=== PATIENT | male | born 1965 | race Caucasian/White ===

== ENCOUNTER 2018-10-06 15:34 | Inpatient (IN) ==
--- OUTSIDE RECORDS SUMMARY | 2018-10-06 15:37 | External Medical Summary | Continuity of Care Document ---
:1965 Author Name Dmitriy Salazar, Provider Address Unavailable Unavailable , Care Team Providers Name Role Phone NonMNPG Marie, Provider Unavailable [email or web address] Unavailable Unavailable Problems Active medical history not documented Allergies and Adverse Reactions Allergy history not documented Medications Medications not documented Procedures Procedures not documented Immunizations Immunizations not documented Plan of Treatment Planned Observations Planned Goals not documented Results No Known Results Results not documented
[2018-10-06] MEDS ORDERED: ACETAMINOPHEN 1,000 MG/100 ML VIAL IV STA (15:52)
[2018-10-06] MEDS ORDERED: SODIUM CHLORIDE 0.9% 1000ML 1,000 ML IV SCH (16:00)
--- NOTE | 2018-10-06 16:06 | XRay Report ---
XR chest 1V portable HISTORY: 53 years-old Male vertigo acute syncope COMPARISON: None available TECHNIQUE: Portable AP view of the chest FINDINGS: Cardiac mediastinal and hilar silhouettes are within normal limits. No pneumothorax, pleural effusion , focal airspace consolidation or overt pulmonary edema. Degenerative changes of the shoulders and sp ine. IMPRESSION: No acute process. The above report was generated using voice recognition software. It may contain grammatical, syntax o r spelling errors. Electronically signed by: Gerardo Perales M.D. 10/06/2018 4:04 PM
--- NOTE | 2018-10-06 16:07 | Emergency Department Note ---
Entered by Mirta Martinez acting as a scribe for Shantanu Tinoco DO History of Present Illness General Chief complaint: Fall Stated complaint: HEADACHE, FALL, HEAD INJURY Source: patient Mode of arrival: ambulatory Limitations: no limitations History of Present Illness Provider complaint: Fall Onset (ago): minute(s) Location: head Radiation: neck Associated symptoms: + denies other symptoms (-numbness/tingling in extremities), + nausea/vomiting (vomiting no nausea ) and + other (+dizziness, +blurry vision, +heart palpitations, +neck pain) The patient is a 53 year old male who presents to the Emergency Room with comp laints of a fall that occurred just prior to arrival. The patient states that he was sitting on his couch looking at albums on his computer when he suddenly got a headache, felt something in the back of his neck, and then had dizziness. The patient states that he walked outside to his porch to sit on his swing when he face-planted off of the porch. The patient states that he has neck pain, dizzine ss, heart palpitations, blurry vision, and vomiting. The patient denies any numbness/tingling in his extremities or loss of consciousness. The patient denies a history of stroke of hypertension. The patient denies smoking tobacco but states that he does drink occasionally. 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 and A total of 10 systems reviewed and were otherwise negative Physical Exam Vital Signs Vital Signs - 24 hr 10/06/18 15:40 10/06/18 15:43 10/06/18 15:47 Temperature 36.7 C Temperature Source Oral Sepsis Recent Fever Within 48 Hours No Sepsis New/Unexplained Change in Mental Status No Sepsis Action Taken by Nursing No Action Required Pulse Rate 75 72 85 Pulse Rate from SpO2 Sensor 75 74 Respiratory Rate 23 20 20 Respiratory Effort / Characteristics Non-Labored Spontaneous Respiratory Depth Normal Respiratory Pattern Regular Blood Pressure 177/122 H 177/122 H Blood Pressure Mean 140 140 Pulse Oximetry 96 95 96 Oxygen Delivery Method Room Air 10/06/18 16:00 10/06/18 16:30 10/06/18 17:02 Temperature Temperature Source Sepsis Recent Fever Within 48 Hours Sepsis New/Unexplained Change in Mental Status Sepsis Action Taken by Nursing Pulse Rate 86 82 78 Pulse Rate from SpO2 Sensor 86 78 Respiratory Rate 16 17 15 Respiratory Effort / Characteristics Respiratory Depth Respiratory Pattern Blood Pressure 175/107 H 166/99 H 163/99 H Blood Pressure Mean 129 121 120 Pulse Oximetry 96 97 Oxygen Delivery Method 10/06/18 17:03 10/06/18 17:30 10/06/18 17:31 Temperature Temperature Source Sepsis Recent Fever Within 48 Hours Sepsis New/Unexplained Change in Mental Status Sepsis Action Taken by Nursing Pulse Rate 82 74 70 Pulse Rate from SpO2 Sensor 81 75 71 Respiratory Rate 15 22 19 Respiratory Effort / Characteristics Respiratory Depth Respiratory Pattern Blood Pressure 172/89 H Blood Pressure Mean 116 Pulse Oximetry 97 97 97 Oxygen Delivery Method 10/06/18 17:32 10/06/18 18:00 10/06/18 18:30 Temperature Temperature Source Sepsis Recent Fever Within 48 Hours Sepsis New/Unexplained Change in Mental Status Sepsis Action Taken by Nursing Pulse Rate 73 80 98 H Pulse Rate from SpO2 Sensor 72 77 101 H Respiratory Rate 25 H 19 19 Respiratory Effort / Characteristics Respiratory Depth Respiratory Pattern Blood Pressure 172/118 H 190/121 H Blood Pressure Mean 136 144 Pulse Oximetry 96 96 96 Oxygen Delivery Method 10/06/18 18:45 10/06/18 19:00 10/06/18 19:15 Temperature Temperature Source Sepsis Recent Fever Within 48 Hours Sepsis New/Unexplained Change in Mental Status Sepsis Action Taken by Nursing Pulse Rate 67 70 75 Pulse Rate from SpO2 Sensor 68 71 78 Respiratory Rate 21 17 18 Respiratory Effort / Characteristics Respiratory Depth Respiratory Pattern Blood Pressure 169/99 H 173/105 H 161/109 H Blood Pressure Mean 122 127 126 Pulse Oximetry 96 95 96 Oxygen Delivery Method 10/06/18 19:30 10/06/18 19:45 10/06/18 20:00 Temperature Temperature Source Sepsis Recent Fever Within 48 Hours Sepsis New/Unexplained Change in Mental Status Sepsis Action Taken by Nursing Pulse Rate 73 75 70 Pulse Rate from SpO2 Sensor 71 73 Respiratory Rate 13 16 17 Respiratory Effort / Characteristics Respiratory Depth Respiratory Pattern Blood Pressure 170/105 H 174/102 H 175/110 H Blood Pressure Mean 126 126 131 Pulse Oximetry 96 96 Oxygen Delivery Method 10/06/18 20:15 10/06/18 20:30 10/06/18 20:45 Temperature Temperature Source Sepsis Recent Fever Within 48 Hours Sepsis New/Unexplained Change in Mental Status Sepsis Action Taken by Nursing Pulse Rate 90 86 77 Pulse Rate from SpO2 Sensor 85 77 Respiratory Rate 19 16 22 Respiratory Effort / Characteristics Respiratory Depth Respiratory Pattern Blood Pressure 169/102 H 159/108 H 165/110 H Blood Pressure Mean 124 125 128 Pulse Oximetry 97 96 96 Oxygen Delivery Method 10/06/18 21:00 10/06/18 21:15 Temperature Temperature Source Sepsis Recent Fever Within 48 Hours Sepsis New/Unexplained Change in Mental Status Sepsis Action Taken by Nursing Pulse Rate 88 74 Pulse Rate from SpO2 Sensor 76 Respiratory Rate 17 19 Respiratory Effort / Characteristics Respiratory Depth Respiratory Pattern Blood Pressure 163/111 H 170/108 H Blood Pressure Mean 128 128 Pulse Oximetry 96 Oxygen Delivery Method GENERAL: Patient is awake, alert, and in no acute distress. Patient is resting comfortably and showing no signs of anxiety. EYES: The conjunctivae are clear. The pupils are round and reactive. No nystagmus was noted. EARS, NOSE, MOUTH AND THROAT: The nose is without any evidence of any deformity. Mucous membranes are moist.Tongue is midline. There is a contusion and abrasion over the right side of the forehead. NECK: The neck is nontender and supple. RESPIRATORY: Normal respiratory effort is noted. There is no evidence of wheezing rhonchi or rales to auscultation. CARDIOVASCULAR: Regular rate and rhythm noted. There no murmurs rubs or gallops normal S1 normal S2 GASTROINTESTINAL: The abdomen is soft. Bowel sounds are present in all quadrants. Abdomen is nontender. MUSCULOSKELETAL/EXTREMITIES: There is no evidence of gross deformity. Full range of motion is noted in the hips and shoulders. SKIN: There is no obvious evidence of any rash. There are no petechiae, pallor or cyanosis noted. NEUROLOGIC: Patient is awake alert and oriented x3. Facial droop was not appreciated. Strength was symmetric in both lower extremities. Patient's gait was stable. Course 1545: The patient was evaluated in room C6, and a complete history and physical examination were performed. 1710: I checked on the patient and updated him on his results. 1814: [facility]. Neurology accepts the patient's admission. Consultations Consultation #1: [facility]ana[facility] Time: 18:15 Administered Medications Acetaminophen (Tylenol) 650 mg PO Q6H PRN PRN Reason: Fever Stop: 11/05/18 22:16 Last Admin: 10/07/18 03:34 Dose: 650 mg Documented by: [id number] Aspirin (Ecotrin Ectab) 81 mg PO QAM [facility] Stop: 11/06/18 08:59 Last Admin: 10/07/18 09:30 Dose: 81 mg Documented by: [id number] Lactated Ringer's (Lr) 1,000 mls @ 40 mls/hr IV .Q24H ONE Stop: 10/07/18 22:16 Last Admin: 10/06/18 23:35 Dose: 40 mls/hr Documented by: [id number] Lisinopril (Zestril) 2.5 mg PO QAM [facility] Stop: 11/06/18 03:44 Last Admin: 10/07/18 03:55 Dose: 2.5 mg Documented by: [id number] Tramadol HCl (Ultram) 25 mg PO Q4H PRN PRN Reason: Pain Stop: 11/05/18 22:16 Last Admin: 10/06/18 23:39 Dose: 25 mg Documented by: [id number] Discontinued Medications Aspirin (Ecotrin) 81 mg PO NOW STA Stop: 10/06/18 21:20 Last Admin: 10/06/18 21:42 Dose: Not Given Documented by: [id number] Aspirin (Aspirin Chew) Confirm Administered Dose 81 mg .ROUTE .STK-MED ONE Stop: 10/06/18 21:31 Last Admin: 10/06/18 21:42 Dose: 81 mg Documented by: [id number] Heparin Sodium/Dextrose () 1 ea IV ONE ONE; Protocol Stop: 10/06/18 18:11 Last Admin: 10/06/18 19:01 Dose: Not Given Documented by: [id number] Heparin Sodium/Dextrose (Heparin Sodium/Dextrose) Confirm Administered Dose 25,000 units IV .STK-MED ONE Stop: 10/06/18 18:30 Last Admin: 10/06/18 18:37 Dose: 32 ml Documented by: [id number] Cosigned by: [id number] Heparin Sodium/Dextrose () 1 ea IV NOW STA; Protocol Stop: 10/06/18 20:47 Last Admin: 10/06/18 21:03 Dose: 1 ea Documented by: [id number] Acetaminophen (Ofirmev) 1,000 mg in 100 mls @ 400 mls/hr IV NOW STA Stop: 10/06/18 16:06 Last Infusion: 10/06/18 16:39 Dose: 0 mls/hr Documented by: [id number] Admin: 10/06/18 16:23 Dose: 400 mls/hr Documented by: [id number] Sodium Chloride (Nss 1000ml) 1,000 mls @ 50 mls/hr IV .Q20H [facility] Stop: 11/05/18 15:59 Last Infusion: 10/06/18 21:13 Dose: 0 mls/hr Documented by: [id number] Admin: 10/06/18 16:23 Dose: 50 mls/hr Documented by: [id number] Heparin Sodium/Dextrose (Heparin Sodium/Dextrose) 25,000 units in 500 mls @ 20 mls/hr IV .Q24H ABI; Protocol Stop: 11/05/18 20:59 Last Admin: 10/06/18 21:13 Dose: Not Given Documented by: [id number] Ioversol (Optiray 320 125ml) 120 ml IV ONCE PRN PRN Reason: Interaction Checking Stop: 10/10/18 16:50 Last Admin: 10/06/18 16:52 Dose: 120 ml Documented by: [id number] Labetalol HCl (Normodyne) 10 mg IV NOW STA Stop: 10/06/18 18:18 Last Admin: 10/06/18 18:34 Dose: 10 mg Documented by: [id number] Cosigned by: [id number] Morphine Sulfate (Morphine Sulfate) 4 mg IV NOW STA Stop: 10/06/18 20:58 Last Admin: 10/06/18 21:01 Dose: 4 mg Documented by: [id number] Morphine Sulfate (Morphine Sulfate) Confirm Administered Dose 4 mg .ROUTE .STK- MED ONE Stop: 10/06/18 21:01 Last Admin: 10/06/18 21:02 Dose: Not Given Documented by: [id number] Ondansetron HCl (Zofran) 4 mg IV NOW STA Stop: 10/06/18 20:58 Last Admin: 10/06/18 21:01 Dose: 4 mg Documented by: [id number] Ondansetron HCl (Zofran) Confirm Administered Dose 4 mg .ROUTE .STK-MED ONE Stop: 10/06/18 21:01 Last Admin: 10/06/18 21:02 Dose: Not Given Documented by: [id number] Potassium Chloride (Klor-Con M20) 40 meq PO NOW STA Stop: 10/06/18 19:51 Last Admin: 10/06/18 20:16 Dose: 40 meq Documented by: [id number] Medical Decision Making Differential Diagnosis Differential Diagnosis includes but is not limited to dehydration, stroke, anemia, hypoglycemia, hyponatremia, hypernatremia, urinary tract infection, pneumonia, bronchitis, sepsis, gastroenteritis, additional abdominal pathology, metabolic abnormalities and infections. Medical Records Attestation: I reviewed the patient's medical records. Home Medications Current Medication List: was personally reviewed by me Laboratory Data Attestation: I reviewed the patient's lab results. Result diagrams: 10/07/18 06:22 10/07/18 06:22 Lab Results 10/06/18 10/06/18 10/06/18 Range/Units 15:52 15:52 15:52 WBC 8.18 (4.8-10.8) K/uL RBC 5.03 (4.7-6.1) M/uL Hgb 16.7 (14.0-18.0) g/dL Hct 46.3 (42-52) % MCV 92.0 (80-100) fL MCH 33.2 (25-34) pg MCHC 36.1 H (32-36) g/dL RDW Std Deviation 44.3 (36.4-46.3) fL RDW Coeff of Maria Luisa 13.2 (11.5-14.5) % Plt Count 192 (130-400) K/uL MPV 10.2 (7.4-10.4) fL Immature Gran % (Auto) 0.1 % Neut % (Auto) 83.0 % Lymph % (Auto) 11.4 % [place] % (Auto) 3.8 % Eos % (Auto) 1.5 % Baso % (Auto) 0.2 % Immature Gran # (Auto) 0.01 (0.00-0.02) K/uL Neut # (Auto) 6.79 H (1.4-6.5) K/uL Lymph # (Auto) 0.93 L (1.2-3.4) K/uL [place] # (Auto) 0.31 (0.11-0.59) K/uL Eos # (Auto) 0.12 (0-0.5) K/uL Baso # (Auto) 0.02 (0-0.2) K/uL PT 10.3 (9.0-12.0) Seconds INR 1.0 (0.9-1.1) APTT 23.2 (21.0-31.0) Seconds PTT Ratio 0.9 Sodium 140 (136-145) mmol/L Potassium 3.4 L (3.5-5.1) mmol/L Chloride 107 (98-107) mmol/L Carbon Dioxide 27 (21-32) mmol/L Anion Gap 6.0 (3-11) BUN 9 (7-18) mg/dl Creatinine 0.97 (0.6-1.4) mg/dl Est Cr Clr Drug Dosing 108.8 ml/min Est GFR ( Amer) 102.2 Est GFR (Non-Af Amer) 88.1 BUN/Creatinine Ratio 9.5 L (10-20) Glucose 120 H (70-99) mg/dl Estimat Average Glucose mg/dl Hemoglobin A1c (4.5-5.6) % Calcium 8.4 L (8.5-10.1) mg/dl Magnesium 2.2 (1.8-2.4) mg/dl Total Bilirubin 1.1 H (0.2-1) mg/dl AST 15 (15-37) U/L ALT 31 (12-78) U/L Alkaline Phosphatase 49 (45-117) U/L Troponin I < 0.015 (0-0.045) ng/ml Total Protein 7.7 (6.4-8.2) gm/dl Albumin 3.9 (3.4-5.0) gm/dl Globulin 3.8 (2.5-4.0) gm/dl Albumin/Globulin Ratio 1.0 (0.9-2) TSH (0.300-4.500) uIu/ml Free T4 (0.8-1.6) ng/dl 10/06/18 10/06/18 Range/Units 15:52 15:52 WBC (4.8-10.8) K/uL RBC (4.7-6.1) M/uL Hgb (14.0-18.0) g/dL Hct (42-52) % MCV (80-100) fL MCH (25-34) pg MCHC (32-36) g/dL RDW Std Deviation (36.4-46.3) fL RDW Coeff of Maria Luisa (11.5-14.5) % Plt Count (130-400) K/uL MPV (7.4-10.4) fL Immature Gran % (Auto) % Neut % (Auto) % Lymph % (Auto) % [place] % (Auto) % Eos % (Auto) % Baso % (Auto) % Immature Gran # (Auto) (0.00-0.02) K/uL Neut # (Auto) (1.4-6.5) K/uL Lymph # (Auto) (1.2-3.4) K/uL [place] # (Auto) (0.11-0.59) K/uL Eos # (Auto) (0-0.5) K/uL Baso # (Auto) (0-0.2) K/uL PT (9.0-12.0) Seconds INR (0.9-1.1) APTT (21.0-31.0) Seconds PTT Ratio Sodium (136-145) mmol/L Potassium (3.5-5.1) mmol/L Chloride (98-107) mmol/L Carbon Dioxide (21-32) mmol/L Anion Gap (3-11) BUN (7-18) mg/dl Creatinine (0.6-1.4) mg/dl Est Cr Clr Drug Dosing ml/min Est GFR ( Amer) Est GFR (Non-Af Amer) BUN/Creatinine Ratio (10-20) Glucose (70-99) mg/dl Estimat Average Glucose 103 mg/dl Hemoglobin A1c 5.2 (4.5-5.6) % Calcium (8.5-10.1) mg/dl Magnesium (1.8-2.4) mg/dl Total Bilirubin (0.2-1) mg/dl AST (15-37) U/L ALT (12-78) U/L Alkaline Phosphatase (45-117) U/L Troponin I (0-0.045) ng/ml Total Protein (6.4-8.2) gm/dl Albumin (3.4-5.0) gm/dl Globulin (2.5-4.0) gm/dl Albumin/Globulin Ratio (0.9-2) TSH 5.600 H (0.300-4.500) uIu/ml Free T4 1.01 (0.8-1.6) ng/dl Imaging Data Radiologist's Impression: Radiology results as stated below per my review and the radiologist's interpretation: XR chest 1V portable HISTORY: 53 years-old Male vertigo acute syncope COMPARISON: None available TECHNIQUE: Portable AP view of the chest FINDINGS: Cardiac mediastinal and hilar silhouettes are within normal limits. No pneumothorax, pleural effusion, focal airspace consolidation or overt pulmonary edema. Degenerative changes of the shoulders and spine. IMPRESSION: No acute process. The above report was generated using voice recognition software. It may contain grammatical, syntax or spelling errors. Electronically signed by: Gerardo Perales M.D. 10/06/2018 4:04 PM ECG Data Attestation: I personally reviewed and interpreted this ECG as follows: Indication: weakness Rate (beats per minute): 66 Rhythm: normal sinus Findings: + PAC; no acute ischemic change Comparison ECG Date: no prior available Blood Pressure Blood Pressure Findings: Elevated blood pressure Blood Pressure Disposition: elevated BP felt to be situational MDM Narrative The patient is a 53-year-old male who presented to the emergency department by ambulance. The patient states that while he was working at home he started to notice an acute onset of vertigo. This was preceded by neck pain as well as headache. The patient states that he was having difficulty ambulating and felt very ataxic. Patient went outside and sat on a porch swing which exacerbated the vertigo and he fell forward striking his forehead. The patient had no focal neurologic deficits. He was able to ambulate but did have significant vertigo symptoms. For this reason I felt his condition could be consistent with a vascular abnormality and given his neck pain we are concerned about a dissection. I discussed the patient's laboratory and radiographic studies with him. He was found to have signs of vertebral dissection on angiography. For this reason he was started on heparin. CT the head did not reveal any acute bleeding. I discussed the patient's laboratory and radiographic studies with him and his family members. I also discussed his case with the on-call [facility] hospitalist group. He was treated with IV medications for blood pressure as well as IV heparin. On subsequent reevaluation he was feeling somewhat improved but required IV pain medication. Impression & Plan Vertigo, Contusion of forehead, Vertebral artery dissection Critical Care Time Critical Care Time: Yes Total Critical Care Time: 60 I have personally spent 60 minutes of critical care time in the direct ma nagement of this patient. This includes bedside care, interpretation of diagnostic studies, and testing, discussion with consultants, patient, and family members, and other required patient management activities. This 60 minutes is in excess of all separately billable procedures. Discharge Plan Visit Data *Final* Discharge Date/Time: 10/06/18 21:59 Chief Complaint: Fall Stated Complaint: HEADACHE, FALL, HEAD INJURY ED Provider: Shantanu Tinoco Discharge Problem: Vertigo, Contusion of forehead, Vertebral artery dissection Patient Disposition: Admitted As Inpatient Discharge Instructions Interventions: ED Discharge Assessment Last Done: 10/06/18 21:59 Discharge Problem: Contusion of forehead Qualifiers: Encounter type: initial encounter Qualified Code(s): S00.83XA - Contusion of other part of head, initial encounter The scribe's documentation has been prepared under my direction and personally reviewed by me in its entirety. I confirm that the note above accurately reflects all work, treatment, procedures, and medical decision making performed by me.
[2018-10-06 16:22] LABS: Basophils # (auto) 0.02 K/uL (0-0.2); Basophils % (auto) 0.2 %; Eosinophils # (auto) 0.12 K/uL (0-0.5); Eosinophils % (auto) 1.5 %; Hematocrit (blood only) 46.3 % (42-52); Hemoglobin 16.7 g/dL (14.0-18.0); Immature Granulocytes # (auto) 0.01 K/uL (0.00-0.02); Immature Granulocytes % (auto) 0.1 %; Lymphocytes # (auto) 0.93 K/uL (1.2-3.4); Lymphocytes % (auto) 11.4 %; Mean Corpuscular Hgb Conc 36.1 g/dL (32-36); Mean Platelet Volume 10.2 fL (7.4-10.4); Monocytes # (auto) 0.31 K/uL (0.11-0.59); Monocytes % (auto) 3.8 %; Neutrophils # (auto) 6.79 K/uL (1.4-6.5); Platelet Count 192 K/uL (130-400); RDW Coefficient of Variation 13.2 % (11.5-14.5); RDW Standard Deviation 44.3 fL (36.4-46.3); Red Blood Count 5.03 M/uL (4.7-6.1); White Blood Count 8.18 K/uL (4.8-10.8)
[2018-10-06 16:33] LABS: Partial Thromboplastin Ratio 0.9; Partial Thromboplastin Time 23.2 Seconds (21.0-31.0); Prothrombin Time 10.3 Seconds (9.0-12.0)
[2018-10-06 16:39] LABS: Alanine Aminotransferase 31 U/L (12-78); Albumin Level 3.9 gm/dl (3.4-5.0); Aspartate Aminotransferase 15 U/L (15-37); BUN Creatinine Ratio 9.5 (10-20); Blood Urea Nitrogen 9 mg/dl (7-18); Calcium 8.4 mg/dl (8.5-10.1); Carbon Dioxide 27 mmol/L (21-32); Chloride 107 mmol/L (98-107); Creatinine Clr Calc Pharmacy 108.8 ml/min; Est GFR (African American) 102.2; Est GFR (Non-African American) 88.1; Glucose 120 mg/dl (70-99); Magnesium 2.2 mg/dl (1.8-2.4); Potassium 3.4 mmol/L (3.5-5.1); Sodium 140 mmol/L (136-145)
[2018-10-06 16:44] LABS: Alkaline Phosphatase 49 U/L (45-117); Bilirubin,Total 1.1 mg/dl (0.2-1); Globulin 3.8 gm/dl (2.5-4.0); Total Protein 7.7 gm/dl (6.4-8.2); Troponin I < 0.015 ng/ml (0-0.045)
[2018-10-06] MEDS ORDERED: OPTIRAY 320 125ml IV PRN (16:51)
--- NOTE | 2018-10-06 17:17 | CT Scan Report ---
HEAD CT NONCONTRAST CT DOSE: HISTORY: Dizziness. Fall. Head injury. Stroke evaluation TECHNIQUE: Multiaxial CT images of the head were performed without the use of intravenous contrast. A utomated exposure control was utilized for this study. A dose lowering technique was utilized adheri ng to the principles of ALARA. Comparison: None. Findings: The paranasal sinuses and mastoid air cells are clear. The calvarium and skull base are int act. The ventricles and sulci are within normal limits. There is no mass, hematoma, midline shift, or acute infarct. Right frontal scalp swelling. Impression: No acute intracranial abnormality. Right frontal scalp swelling. Electronically signed by: Ventura Fairbanks M.D. 10/06/2018 5:15 PM
--- NOTE | 2018-10-06 17:29 | CT Scan Report ---
CT ANGIOGRAM OF THE BRAIN; CT ANGIOGRAM OF THE NECK CLINICAL HISTORY: Vertigo. Near syncope. Dizziness. Vomiting. COMPARISON STUDY: Unenhanced CT of the brain performed concurrently on 10/06/2018. TECHNIQUE: Following the IV administration of 120 of Optiray 320, CT angiogram of the head and neck w as performed from the aortic arch to the vertex. Images are reviewed in the axial, sagittal, and buzz nal planes. 3-D MIPS images are created and assessed. IV contrast was administered without complicati on. All measurements were calculated based on NASCET criteria. A dose lowering technique was utilize d adhering to the principles of ALARA. CT DOSE: 1069.70 mGy.cm FINDINGS: Brain parenchyma: The brain parenchyma is normal in appearance. There is no hemorrhage, mass effect, or evidence of acute territorial ischemia by CT criteria. There is no evidence of enhancing mass lesi on on the angiogram phase images. The ventricles, sulci, and cisterns are normal in configuration. Gr ay-white matter differentiation is preserved. No extra-axial fluid collection is seen. Thoracic aorta: Visualized portions of the thoracic aorta are normal in caliber. The aortic arch demo nstrates 4-vessel variant anatomy. The left vertebral artery arises directly from the arch. Right carotid arterial system: The right common carotid artery is widely patent, as are the right int ernal and external carotid arteries. Mild atherosclerotic regularity is noted in the carotid bulb. Left carotid arterial system: The left common carotid artery is widely patent, as are the left event planning intern al and external carotid arteries. Atherosclerotic plaque in the carotid bulb causes less than 50% lum inal narrowing. Vertebral arteries: The vertebral arteries are widely patent bilaterally noting left-sided dominance. There is a short segment of focal narrowing involving the right vertebral artery best seen on axial image #164. This likely represents a focal dissection, and is located at the level of C5. Subclavian arteries: Widely patent bilaterally. Intracranial vasculature: The internal carotid arteries are patent at the skull base, as are the ante rior and middle cerebral arteries bilaterally. There is fusiform ectasia of the supraclinoid left int ernal carotid artery which measures up to 6 mm. The vertebrobasilar system and posterior cerebral art eries are widely patent. The left vertebral artery is dominant. The intracranial right vertebral radha ry is diminutive. There is no aneurysm, high-grade stenosis, or focal vessel cut off seen throughout the intracranial circulation. Jugular veins: Widely patent bilaterally. Dural sinuses: Patent. Lung apices: Partially visualized upper lobe lung parenchyma appears clear. Soft tissues: The visualized pharyngeal soft tissues are normal in appearance noting angiographic pha se technique. The oropharyngeal airway appears widely patent. The salivary and thyroid glands are nor mal in appearance. No cervical lymphadenopathy is seen. Skeletal structures: The calvarium appears intact. The cervical spine appears maintained noting mild multilevel spondylosis. This is greatest at C6-C7 where there is moderate to advanced disc space narr owing. A posterior disc osteophyte complex at this level likely contributes to acquired compromise of the central canal. Numerous dental caries are identified with associated periapical lucencies. Soft tissues: There is a right frontal scalp hematoma. Sinuses and mastoids: A 1.7 cm retention cyst is noted in the right maxillary antrum. The paranasal s inuses are otherwise clear. The mastoid air cells are well pneumatized. IMPRESSION: 1. There is no hemorrhage, mass effect, or evidence of acute territorial ischemia by CT criteria on t his angiographic phase examination. 2. Unremarkable CT angiogram of the brain. 3. There is focal narrowing and irregularity seen within the cervical portion of the right vertebral artery at the level of C5. This likely represents a focal dissection. The vertebral arteries are othe rwise widely patent bilaterally. 4. There is less than 50% narrowing at the origin of the left internal carotid artery secondary to so ft plaque. The carotid arteries are otherwise widely patent bilaterally. 5. Right frontal scalp hematoma. Electronically signed by: Tarik Amanda M.D. 10/06/2018 5:28 PM
[2018-10-06] MEDS ORDERED: LABETALOL HCL IV 5 MG/ML 20ML IV STA (18:17)
[2018-10-06] MEDS ORDERED: HEPARIN 25000 UNIT/500 ML D5W IV ONE (18:29)
[2018-10-06] MEDS: Heparin IV Standard *NO* Bolus IV ONE ×2 (18:39→19:01)
[2018-10-06] MEDS ORDERED: POTASSIUM CHLORIDE 20 MEQ TABCR PO STA (19:50)
--- NOTE | 2018-10-06 20:19 | History & Physical Report ---
Date of Service October 06, 2018 Assessment & Plan (1) Vertebral artery dissection: Possibly secondary to long-standing undiagnosed, uncontrolled hypertension Transient vertigo, imbalance posterior circulation symptoms secondary to above Rule out CVA Traumatic frontal hematoma Hypokalemia secondary to emesis Hyperglycemia rule out DM Past tobacco abuse Medical telemetry Stop IV heparin given frontal hematoma. Aspirin for PVD/stroke prophylaxis. MRI/MRA of the brain RE transient vertigo symptoms rule out TIA Neurology consult RE vertebral artery dissection (Dr. Stephens agreeable to cessation of IV heparin given patient's circumstances.) Permissive hypertension for now Initiate low-dose lisinopril if SBP persistently greater than 180s. Replace potassium Check lipid profile Check hemoglobin A1c DVT prophylaxis. SCDs RE scalp hematoma Full code Patient requesting to be set up with [facility] for PCP services upon discharge. History of Present Illness Chief Complaint: Dizziness, neck pain, fall Primary Care Provider: NO PCP History obtained from patient, family, and records. Medical history significant for past tobacco abuse. Patient for a number of months now has had tolerable achy neck discomfort not worse with motion. No recollection of trauma, unusual exertion. This afternoon, patient was seated on a couch looking through his computer photo albums when he noted worsening posterolateral right neck pain followed by spinning dizziness, bilateral blurred vision, emesis. Patient also noted gait imbalance when he got up subsequently falling on the ground face flat. Patient subsequently noted painful swelling on the forehead. No syncope, no LOC, no chest pain, no S OB. At the ER, IV heparin started for focal dissection of the right vertebral artery on CAT scan. Patient currently comfortable. 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 [employer] Allergies Allergy/AdvReac Type Severity Reaction Status Date / Time No Known Allergies Allergy Verified 10/06/18 16:07 Home Medications Home Medications Medication Instructions Recorded Confirmed Type No Known Home Medications 10/06/18 10/06/18 History Past Med/Surg History Medical History No significant active problems No significant family history No significant medical problems No significant past medical history No significant past surgical history Social History Preferred Language: Khmer Communication Ability: Effective 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 Beliefs That Will Affect Care: None Current Living Situation: Spouse Other Information That Helps Us Care for You: No Feels Safe at Home: Yes Safety Concerns: Feels Safe At This Time Smoking Status: Former smoker Hx Alcohol Use: Yes Alcohol type: beer Hx Substance Use: No Review of Systems Review of Systems: As per HPI, all 10 systems reviewed, all other ROS negative Physical Exam Physical Exam: GENERAL: Slightly anxious, obese , no respiratory distress SKIN: Normal color, warm HEENT: Tender right frontal swelling with superficial abrasion, pink palpebral conjunctivae, no ptosis, dry buccal mucosa NECK : Supple, right neck tenderness CHEST : CTA, no tenderness HEART : RRR, no obvious murmurs ABDOMEN: Some distention, nontender EXTREMITIES : Chronic LE swelling, R>L, no LE tenderness, no other conspicuous deformities noted NEUROLOGIC : Coherent, no facial asymmetry, gait and stance not assessed Results & Data Vital Signs (Past 12 Hours) Vital Signs Temp Pulse Resp BP Pulse Ox 10/06/18 20:15 90 19 169/102 H 97 10/06/18 20:00 70 17 175/110 H 10/06/18 19:45 75 16 174/102 H 96 10/06/18 19:30 73 13 170/105 H 96 10/06/18 19:15 75 18 161/109 H 96 10/06/18 19:00 70 17 173/105 H 95 10/06/18 18:45 67 21 169/99 H 96 10/06/18 18:30 98 H 19 190/121 H 96 10/06/18 18:00 80 19 172/118 H 96 10/06/18 17:32 73 25 H 96 10/06/18 17:31 70 19 172/89 H 97 10/06/18 17:30 74 22 97 10/06/18 17:03 82 15 97 10/06/18 17:02 78 15 163/99 H 97 10/06/18 16:30 82 17 166/99 H 96 10/06/18 16:00 86 16 175/107 H 10/06/18 15:47 36.7 C 85 20 177/122 H 96 10/06/18 15:43 72 20 95 10/06/18 15:40 75 23 177/122 H 96 Laboratory Results Laboratory Results WBC 8.18 K/uL (4.8-10.8) 10/06/18 15:52 RBC 5.03 M/uL (4.7-6.1) 10/06/18 15:52 Hgb 16.7 g/dL (14.0-18.0) 10/06/18 15:52 Hct 46.3 % (42-52) 10/06/18 15:52 MCV 92.0 fL (80-100) 10/06/18 15:52 MCH 33.2 pg (25-34) 10/06/18 15:52 MCHC 36.1 g/dL (32-36) H 10/06/18 15:52 RDW Std Deviation 44.3 fL (36.4-46.3) 10/06/18 15:52 RDW Coeff of Maria Luisa 13.2 % (11.5-14.5) 10/06/18 15:52 Plt Count 192 K/uL (130-400) 10/06/18 15:52 MPV 10.2 fL (7.4-10.4) 10/06/18 15:52 Immature Gran % (Auto) 0.1 % 10/06/18 15:52 Neut % (Auto) 83.0 % 10/06/18 15:52 Lymph % (Auto) 11.4 % 10/06/18 15:52 Thayer % (Auto) 3.8 % 10/06/18 15:52 Eos % (Auto) 1.5 % 10/06/18 15:52 Baso % (Auto) 0.2 % 10/06/18 15:52 Immature Gran # (Auto) 0.01 K/uL (0.00-0.02) 10/06/18 15:52 Neut # (Auto) 6.79 K/uL (1.4-6.5) H 10/06/18 15:52 Lymph # (Auto) 0.93 K/uL (1.2-3.4) L 10/06/18 15:52 Thayer # (Auto) 0.31 K/uL (0.11-0.59) 10/06/18 15:52 Eos # (Auto) 0.12 K/uL (0-0.5) 10/06/18 15:52 Baso # (Auto) 0.02 K/uL (0-0.2) 10/06/18 15:52 PT 10.3 Seconds (9.0-12.0) 10/06/18 15:52 INR 1.0 (0.9-1.1) 10/06/18 15:52 APTT 23.2 Seconds (21.0-31.0) 10/06/18 15:52 PTT Ratio 0.9 10/06/18 15:52 Sodium 140 mmol/L (136-145) 10/06/18 15:52 Potassium 3.4 mmol/L (3.5-5.1) L 10/06/18 15:52 Chloride 107 mmol/L (98-107) 10/06/18 15:52 Carbon Dioxide 27 mmol/L (21-32) 10/06/18 15:52 Anion Gap 6.0 (3-11) 10/06/18 15:52 BUN 9 mg/dl (7-18) 10/06/18 15:52 Creatinine 0.97 mg/dl (0.6-1.4) 10/06/18 15:52 Est Cr Clr Drug Dosing 108.8 ml/min 10/06/18 15:52 Est GFR ( Amer) 102.2 10/06/18 15:52 Est GFR (Non-Af Amer) 88.1 10/06/18 15:52 BUN/Creatinine Ratio 9.5 (10-20) L 10/06/18 15:52 Glucose 120 mg/dl (70-99) H 10/06/18 15:52 Calcium 8.4 mg/dl (8.5-10.1) L 10/06/18 15:52 Magnesium 2.2 mg/dl (1.8-2.4) 10/06/18 15:52 Total Bilirubin 1.1 mg/dl (0.2-1) H 10/06/18 15:52 AST 15 U/L (15-37) 10/06/18 15:52 ALT 31 U/L (12-78) 10/06/18 15:52 Alkaline Phosphatase 49 U/L (45-117) 10/06/18 15:52 Troponin I < 0.015 ng/ml (0-0.045) 10/06/18 15:52 Total Protein 7.7 gm/dl (6.4-8.2) 10/06/18 15:52 Albumin 3.9 gm/dl (3.4-5.0) 10/06/18 15:52 Globulin 3.8 gm/dl (2.5-4.0) 10/06/18 15:52 Albumin/Globulin Ratio 1.0 (0.9-2) 10/06/18 15:[address] head: No acute intracranial abnormality. Right frontal scalp swelling. CTA head neck: 1. There is no hemorrhage, mass effect, or evidence of acute territorial ischemia by CT criteria on this angiographic phase examination. 2. Unremarkable CT angiogram of the brain. 3. There is focal narrowing and irregularity seen within the cervical portion of the right vertebral artery at the level of C5. This likely represents a focal dissection. The vertebral arteries are otherwise widely patent bilaterally. 4. There is less than 50% narrowing at the origin of the left internal carotid artery secondary to soft plaque. The carotid arteries are otherwise widely patent bilaterally. 5. Right frontal scalp hematoma. Chest x-ray: No acute process EKG as per my interpretation rate 65, NSR, LAD, LAFB, T wave flattening inferior leads, PACs
[2018-10-06 20:37] LABS: T4 Free Thyroxine 1.01 ng/dl (0.8-1.6)
[2018-10-06] MEDS ORDERED: Heparin IV Low Dose *NO* Bolus IV STA (20:46)
[2018-10-06] MEDS ORDERED: MoRPHine SULFATE 4 MG/ML 1 ML CARP\\VIAL IV STA (20:57)
[2018-10-06] MEDS ORDERED: ONDANSETRON INJ 2 MG/ML 2 ML VIAL IV STA (20:57)
[2018-10-06] MEDS ORDERED: ONDANSETRON INJ 2 MG/ML 2 ML VIAL ONE (21:00)
[2018-10-06] MEDS ORDERED: Heparin Adult LOW DOSE Wt-Based Dextrose 5% 25,000 units/500 mL IV SCH (21:00)
[2018-10-06] MEDS ORDERED: MoRPHine SULFATE 4 MG/ML 1 ML CARP\\VIAL ONE (21:00)
[2018-10-06] MEDS ORDERED: ASPIRIN 325 MG ECTAB PO STA (21:19)
[2018-10-06] MEDS ORDERED: ASPIRIN 81 MG CHEW ONE (21:30)
[2018-10-06] MEDS ORDERED: MoRPHine SULFATE 4 MG/ML 1 ML CARP\\VIAL IV PRN (22:17)
[2018-10-06] MEDS ORDERED: PROMETHAZINE HCL 12.5 MG in SODIUM CHLORIDE 0.9% 50 ML IV PRN (22:17)
[2018-10-06] MEDS ORDERED: ACETAMINOPHEN 325 MG TAB PO PRN (22:17)
[2018-10-06] MEDS ORDERED: TRAMADOL HCL 50 MG TABLET PO PRN (22:17)
[2018-10-06] MEDS ORDERED: LACTATED RINGER'S 1,000 ML IV ONE (22:17)
[2018-10-06] MEDS ORDERED: PHARMACIST DISCHARGE MED REC CONSULT PRN (22:17)
[2018-10-07 01:55] LABS: Appearance Urine Clear (Clear); Bilirubin Urine Negative (Negative); Blood Urine Negative (Negative); Color Urine Yellow; Glucose Urine UA Negative (Negative); Ketones Urine Negative (Negative); Leukocyte Esterase Urine Negative (Negative); Nitrite Urine Negative (Negative); Protein Urine Negative (Negative); Specific Gravity Urine 1.022 (1.000-1.030); Urobilinogen Urine Negative (Negative); pH Urine 6.5 (4.5-7.5)
[2018-10-07 02:27] LABS: Amphetamines+Metham, Urine Neg (Neg); Barbiturates, Urine Neg (Neg); Benzodiazepine, Urine Neg (Neg); Cocaine, Urine Neg (Neg); MDMA (Ecstacy), Urine Neg (Neg); Methadone, Urine Neg (Neg); Opiate, Urine Pos (Neg); Phencyclidine, Urine Neg (Neg)
[2018-10-07] MEDS ORDERED: LISINOPRIL 2.5 MG TAB PO SCH (03:45)
[2018-10-07 06:19] LABS: Estimated Average Glucose 103 mg/dl; Hemoglobin A1C 5.2 % (4.5-5.6)
[2018-10-07 06:38] LABS: Basophils # (auto) 0.03 K/uL (0-0.2); Basophils % (auto) 0.4 %; Eosinophils # (auto) 0.13 K/uL (0-0.5); Eosinophils % (auto) 1.9 %; Hemoglobin 15.9 g/dL (14.0-18.0); Immature Granulocytes # (auto) 0.01 K/uL (0.00-0.02); Immature Granulocytes % (auto) 0.1 %; Lymphocytes # (auto) 1.19 K/uL (1.2-3.4); Lymphocytes % (auto) 17.1 %; Mean Corpuscular Hgb Conc 35.3 g/dL (32-36); Mean Corpuscular Volume 93.6 fL (80-100); Mean Platelet Volume 10.5 fL (7.4-10.4); Monocytes # (auto) 0.38 K/uL (0.11-0.59); Monocytes % (auto) 5.5 %; Neutrophils # (auto) 5.22 K/uL (1.4-6.5); Platelet Count 182 K/uL (130-400); RDW Coefficient of Variation 13.4 % (11.5-14.5); RDW Standard Deviation 45.6 fL (36.4-46.3); Red Blood Count 4.81 M/uL (4.7-6.1); White Blood Count 6.96 K/uL (4.8-10.8)
[2018-10-07 07:06] LABS: BUN Creatinine Ratio 7.3 (10-20); Calcium 8.2 mg/dl (8.5-10.1); Creatinine Clr Calc Pharmacy 108.6 ml/min; Est GFR (African American) 103.4; Est GFR (Non-African American) 89.3; Potassium 3.7 mmol/L (3.5-5.1)
--- NOTE | 2018-10-07 07:10 | Magnetic Resonance Report ---
MR brain wo con HISTORY: 53 years-old Male vertigo acute vertigo with hypertension and headache COMPARISON: MRA of the head of same day, CT head 10/06/2018 TECHNIQUE: Multiplanar multisequence MRI of the brain was obtained without the use of IV contrast FINDINGS: There is no restricted diffusion to suggest acute or subacute infarction. The midline structures incl uding the corpus callosum, brainstem, optic chiasm, pituitary and pineal glands appear unremarkable o n the sagittal T1 series. No cerebellar tonsillar herniation. There is no acute intracranial hemorrha ge, midline shift, abnormal extra-axial collections, hydrocephalus or intracranial mass. Mild age-rel ated involutional changes. Mild patchy T2/FLAIR hyperintensities about the white matter are suggestiv e of chronic microvascular ischemic disease. Slightly increased T2/FLAIR signal about the inferomedia l right cerebellar hemisphere, image 16 series 8 may reflect gliosis from chronic insult. Major flow voids at the level of the skull base appear patent. Trace mastoid effusions. Polypoid muco luis thickening of the right maxillary sinus, 1.4 cm. Right anterior frontal scalp hematoma, 4.9 x 0.8 cm. Calvarium and orbits are unremarkable. IMPRESSION: 1. No acute intracranial abnormality identified. 2. 4.9 cm right anterior frontal scalp hematoma. 3. Patchy T2/FLAIR hyperintensities about the white matter are suggestive of probable mild chronic mi crovascular ischemic disease. 4. Mild paranasal sinus disease. The above report was generated using voice recognition software. It may contain grammatical, syntax o r spelling errors. Electronically signed by: Gerardo Perales M.D. 10/07/2018 7:09 AM
--- NOTE | 2018-10-07 07:23 | Magnetic Resonance Report ---
MR angio head wo con HISTORY: 53 years-old Male vertigo acute vertigo with headache status post fall COMPARISON: CTA of the head of same day TECHNIQUE: MRA of the head was obtained without use of IV contrast utilizing 3-D [id number] seque ncing with MIP reformats. All measurements were obtained according to NASCET criteria. FINDINGS: The imaged bilateral internal carotid arteries appear widely patent and unremarkable. The bilateral m iddle cerebral arteries are widely patent and unremarkable. Diminutive morphology of the right A1 seg ment, likely developmental. Bilateral anterior cerebral arteries are patent. Dominant left vertebral artery. Basilar artery is patent. origin of the left posterior cerebral artery. The bilateral posterior cerebral arteries appear to be widely patent. No aneurysm, dissectio n, high-grade stenosis or proximal branch occlusion. IMPRESSION: Unremarkable MRA of the head. The above report was generated using voice recognition software. It may contain grammatical, syntax o r spelling errors. Electronically signed by: Gerardo Perales M.D. 10/07/2018 7:22 AM
[2018-10-07] MEDS ORDERED: ASPIRIN 81 MG ECTAB PO SCH (09:00)
--- NOTE | 2018-10-07 14:46 | Neurology Consultation ---
Date of Consultation October 07, 2018 Assessment & Plan (1) Vertebral artery dissection: 1. optimize HLD, HTN LDL <70 blood pressure 130-140/ 80-90 2. aspirin 81 mg continue 3. high family history of stroke and heart disease previous smoker should have follow up with PCP to optimize prevention 4. PT/OT for any discharge needs Supervising Physician Co-Signing Physician Notes I have seen and discussed above patient with Dr Henrik Stephens. I agree with Abbi Cox PA-C as noted below. Daughter at bedside. Patient was seen and examined. Reports intermittent spell of vertigo which resulted in a mechanical fall and hitting his head. He denies any recent trauma or neck injury, After hitting his head he had N/V. He has an abrasion on his forehead. Daughter at bedside. He denies LOC. Symptoms have improved and patient denies vertigo or N/V. He denies difficulty walking. Denies history of similar symptoms. Denies any hearing changes. No known PMH. Blood pressures have been elevated since admission. CTA head and neck reviewed. My impression is no significant stenosis. Radiology noted a right vertebral artery dissection. MRI brain reviewed and shows no evidence of acute stroke on my review. No focal symptoms noted on my examine including not ataxia with finger to nose or heel to burrell. He is reporting a headache and neck pain since his fall with a feeling of lightheadedness. I suspect he sustained a concussion from his fall. Overall spell sounds suspicious for pre-syncopal event Vs syncope. Recommend conservative management of probable concussion. Agree with ASA 81 mg daily for possible vertebral artery dissection. Outpatient follow up with neurology in 8- weeks or sooner if needed. Ok to discharge from neurology standpoint. History of Present Illness Reason for Consultation: dizziness, vert art dissection Requesting Physician: Kolton Peraza MD Attending Physician: Kolton Peraza MD History of Present Illness Prashant is a 53 year old male who presents to the ED with complaints of a fall that occurred just prior to arrival. He was sitting on his couch looking at albums on his computer when he suddenly got a headache, felt something in the back of his neck, and then had dizziness. He walked outside to his porch to sit on his swing when he face-planted off of the porch. He had neck pain, dizziness, heart palpitations, tunnel/blurry vision, and vomiting. He has not been to a doctor in years and was not aware he had hypertension. He doesn't like taking medications. He is a past smoker, drinks alot of caffeine (coffee) drinker, no other drugs, minimal EtOH use. denies CP, SOB, abdominal pain, one sided weakness, numbness tingling, current headache, vision changes N, V, swallowing issues. Allergies Allergy/AdvReac Type Severity Reaction Status Date / Time No Known Allergies Allergy Verified 10/06/18 16:07 Home Medications Home Medications Medication Instructions Recorded Confirmed Type No Known Home Medications 10/06/18 10/06/18 History Patient History Medical History No significant active problems No significant family history No significant medical problems No significant past medical history No significant past surgical history Social History Preferred Language: Yoruba Communication Ability: Effective Pharmacognosist Required: Yes Beliefs That Will Affect Care: None Current Living Situation: Spouse Other Information That Helps Us Care for You: No Feels Safe at Home: Yes Safety Concerns: Feels Safe At This Time Smoking Status: Former smoker Hx Alcohol Use: Yes Alcohol type: beer Hx Substance Use: No Physical Exam Physical Exam: Physical Exam: Constitutional: appearance over-nourished, healthy Ears, Nose, Mouth and Throat: mucous membranes moist, no injection and skin normal, eyes normal Cardiovascular: normal S-1 and S-2 and regular rate and rhythm Respiratory: clear to auscultation (CTA) and no rales, rhonchi or wheeze Musculoskeletal: no peripheral edema and good distal pulses Skin: large hematoma right frontal Eyes: extraocular muscles intact (EOMI) and pupils equal, round and reactive to light (PERRL) NEUROLOGIC EXAMINATION: Mental status: Alert and interactive Oriented to full date and location Oriented to person Speech fluent with no evidence of aphasia Cranial Nerves smile eye brow raise symmetric, tongue midline Reflexes: Deep tendon reflexes were symmetrical and graded 2/5. Sensory: no deficit to light or cool vibration Coordination: finger to nose no bi pass, romberg + Gait/Stance: Posture normal. Gait normal: with steady with steps tandem gait. Motor: Negative for pronator drift of out stretched arms with eyes closed. Strength: biceps triceps hand land resource specialist 5/5 bilaterally hip flex plantar flex ext 5/5 bilaterally Results & Data Vital Signs (Past 12 Hours) Vital Signs Temp Pulse Pulse Resp BP Pulse Ox 10/07/18 11:26 36.9 C 69 21 169/98 H 95 10/07/18 08:00 79 10/07/18 06:58 36.9 C 79 17 162/96 H 95 10/07/18 03:59 36.4 C L 74 20 163/98 H 95 Laboratory Results Abnormal lab results 10/06/18 10/06/18 10/06/18 Range/Units 15:52 15:52 15:52 MCHC 36.1 H (32-36) g/dL MPV (7.4-10.4) fL Neut # (Auto) 6.79 H (1.4-6.5) K/uL Lymph # (Auto) 0.93 L (1.2-3.4) K/uL Potassium 3.4 L (3.5-5.1) mmol/L BUN/Creatinine Ratio 9.5 L (10-20) Glucose 120 H (70-99) mg/dl Calcium 8.4 L (8.5-10.1) mg/dl Total Bilirubin 1.1 H (0.2-1) mg/dl Triglycerides (0-150) mg/dl TSH 5.600 H (0.300-4.500) uIu/ml Urine Opiates Screen (Neg) 10/07/18 10/07/18 10/07/18 Range/Units 01:15 06:22 06:22 MCHC (32-36) g/dL MPV 10.5 H (7.4-10.4) fL Neut # (Auto) (1.4-6.5) K/uL Lymph # (Auto) 1.19 L (1.2-3.4) K/uL Potassium (3.5-5.1) mmol/L BUN/Creatinine Ratio 7.3 L (10-20) Glucose 106 H (70-99) mg/dl Calcium 8.2 L (8.5-10.1) mg/dl Total Bilirubin (0.2-1) mg/dl Triglycerides 313 H (0-150) mg/dl TSH 5.940 H (0.300-4.500) uIu/ml Urine Opiates Screen Pos H (Neg) Diagnostic Findings CT head-No acute intracranial abnormality. Right frontal scalp swelling. CXR-Cardiac mediastinal and hilar silhouettes are within normal limits. No pneumothorax, pleural effusion, focal airspace consolidation or overt pulmonary edema. Degenerative changes of the shoulders and spine. CTA head/neck-There is no hemorrhage, mass effect, or evidence of acute territorial ischemia by CT criteria on this angiographic phase examination. Unremarkable CT angiogram of the brain. There is focal narrowing and irregularity seen within the cervical portion of the right vertebral artery at the level of C5. This likely represents a focal dissection. The vertebral arteries are otherwise widely patent bilaterally. There is less than 50% narrowing at the origin of the left internal carotid artery secondary to soft plaque. The carotid arteries are otherwise widely patent bilaterally. Right frontal scalp hematoma. MRI brain -No acute intracranial abnormality identified. 4.9 cm right anterior frontal scalp hematoma. Patchy T2/FLAIR hyperintensities about the white matter are suggestive of probable mild chronic microvascular ischemic disease. Mild paranasal sinus disease. MRA head-Unremarkable MRA of the head.
[2018-10-07] MEDS ORDERED: STROKE PATIENT DISCHARGE STA (19:55)
--- NOTE | 2018-10-07 20:45 | Hospitalist Progress Note ---
Date of Service October 07, 2018 Assessment & Plan (1) Vertebral artery dissection: Presented with right cervical pain and vertigo. Imaging by CTA demonstrated focal narrowing and irregularity within the cervical portion of the right vertebral artery at the level C5 felt to likely represent a focal dissection. No evidence of stroke seen on either CT or MR imaging. Neurology was consulted. Antiplatelet therapy with aspirin was recommended. PT, OT, MANAGER COLLEGE evaluations were performed. There were no deficits noted and no recommendations for further therapies. Management of dyslipidemia and hypertension as discussed below. (2) Concussion: Patient fell and struck his right forehead. [place] to have symptoms suggestive of concussion. Concussion precautions discussed. (3) Carotid artery disease: CTA neck demonstrated less than 50% narrowing at the origin of the left internal carotid artery secondary to soft plaque. Patient started on aspirin and atorvastatin. (4) Hypertension: Patient noted to have blood pressures as high as 190/121. He was started on lisinopril 2.5 mg daily. Blood pressure this afternoon 173/111, repeat 146/89. Discharge on lisinopril 2.5 mg daily. Follow and titrate therapy. (5) Dyslipidemia: Lipid profile demonstrated serum triglyceride level of 313, total cholesterol 178, LDL 70, HDL 45. Started on atorvastatin 40 mg daily. Patient given information on heart healthy diet. (6) Elevated TSH: TSH 5.6, free T4 1.01. Slightly elevated TSH could be stress-mediated. Thyroid replacement therapy was not initiated. Recheck TSH periodically. (7) DVT prophylaxis: Low risk for VTE per IMPROVE risk assessment model. SCDs ordered. Ambulating. (8) Discharge planning issues: Discharged home. Patient was advised not to work or to drive until reevaluated in clinic next week. He does not have a primary care provider. Arrangements made to see Dr. Mills at the [facility] in [place]. Subjective Patient seen in his room around 1630. Daughter visiting. Feels well. Ready to have his diet advanced. Anxious to go home. No further neurologic symptoms. Mild right cervical discomfort. No headache, visual changes, dysarthria, dysphagia, focal motor weakness. Evaluations by PT, OT, and MANAGER COLLEGE went well with no concerns and no needs for ongoing therapies. Physical Exam Constitutional: no acute distress Respiratory: no respiratory distress Auscultation: lungs clear to auscultation bilaterally Cardiovascular: Rate/Rhythm: regular rate and regular rhythm Heart Sounds: no gallop, no murmur and no cardiac rub Vessels: no JVD Extremities: no calf tenderness and no edema Gastrointestinal (Abdomen): normal bowel sounds, soft, nontender, no hepatosplenomegaly Musculoskeletal: Head/Neck/Chest: + head abnormal to inspection (contusion right forehead) Skin: no rashes, warm and dry Neurologic: PERRL, EOMI no nystagmus no facial palsy no dysarthria or aphasia tongue midline motor strength upper and lower extremities 5/5 Psychiatric: Orientation: alert and oriented x 3 Results & Data Vital Signs (Past 12 Hours) Vital Signs Temp Pulse Resp BP Pulse Ox 10/07/18 19:58 36.7 C 75 19 146/89 H 95 10/07/18 15:47 146/89 H 10/07/18 15:39 36.7 C 75 19 173/111 H 95 10/07/18 11:26 36.9 C 69 21 169/98 H 95
--- NOTE | 2018-10-07 20:50 | Discharge Summary ---
Date of Service Date of Admission: 10/06/18 Date of Discharge: 10/07/18 Admission HPI Per Admitting Provider History obtained from patient, family, and records. Medical history significant for past tobacco abuse. Patient for a number of months now has had tolerable achy neck discomfort not worse with motion. No recollection of trauma, unusual exertion. This afternoon, patient was seated on a couch looking through his computer photo albums when he noted worsening posterolateral right neck pain followed by spinning dizziness, bilateral blurred vision, emesis. Patient also noted gait imbalance when he got up subsequently falling on the ground face flat. Patient subsequently noted painful swelling on the forehead. No syncope, no LOC, no chest pain, no S OB. At the ER, IV heparin started for focal dissection of the right vertebral artery on CAT scan. Patient currently comfortable. Admission Exam Per Admitting Provider GENERAL: Slightly anxious, obese , no respiratory distress SKIN: Normal color, warm HEENT: Tender right frontal swelling with superficial abrasion, pink palpebral conjunctivae, no ptosis, dry buccal mucosa NECK : Supple, right neck tenderness CHEST : CTA, no tenderness HEART : RRR, no obvious murmurs ABDOMEN: Some distention, nontender EXTREMITIES : Chronic LE swelling, R>L, no LE tenderness, no other conspicuous deformities noted NEUROLOGIC : Coherent, no facial asymmetry, gait and stance not assessed Principal Diagnosis right vertebral artery dissection OTHER ACUTE / NEW DIAGNOSES: concussion left internal carotid disease (soft plaque, < 50% stenosis) dyslipidemia hypertension elevated TSH Discharge Data Allergies Allergy/AdvReac Type Severity Reaction Status Date / Time No Known Allergies Allergy Verified 10/06/18 16:07 Consultations 10/06/18 18:31 ED Decision to Admit Stat 10/06/18 22:17 Consult Case Management - Discharge Planning Routine Consult Neurology Routine Ordered Studies 10/06/18 15:52 CT angio head w con Stat CT angio neck with con Stat CT head/brain wo con Stat 10/06/18 22:17 MR angio head wo con Urgent MR brain wo con Urgent Hospital Course (1) Vertebral artery dissection: Presented with right cervical pain and vertigo. Imaging by CTA demonstrated focal narrowing and irregularity within the cervical portion of the right vertebral artery at the level C5 felt to likely represent a focal dissection. No evidence of stroke seen on either CT or MR imaging. Neurology was consulted. Antiplatelet therapy with aspirin was recommended. PT, OT, SALON COORDINATOR evaluations were performed. There were no deficits noted and no recommendations for further therapies. Management of dyslipidemia and hypertension as discussed below. (2) Concussion: Patient fell and struck his right forehead. [place] to have symptoms suggestive of concussion. Concussion precautions discussed. (3) Carotid artery disease: CTA neck demonstrated less than 50% narrowing at the origin of the left internal carotid artery secondary to soft plaque. Patient started on aspirin and atorvastatin. (4) Hypertension: Patient noted to have blood pressures as high as 190/121. He was started on lisinopril 2.5 mg daily. Blood pressures afternoon of discharge were 173/111, repeat 146/89. Discharge on lisinopril 2.5 mg daily. Follow and titrate therapy. (5) Dyslipidemia: Lipid profile demonstrated serum triglyceride level of 313, total cholesterol 178, LDL 70, HDL 45. Started on atorvastatin 40 mg daily. Patient given information on heart healthy diet. (6) Elevated TSH: TSH 5.6, free T4 1.01. Slightly elevated TSH could be stress-mediated. Thyroid replacement therapy was not initiated. Recheck TSH periodically. (7) DVT prophylaxis: Low risk for VTE per IMPROVE risk assessment model. SCDs ordered. Ambulating. (8) Discharge planning issues: Discharged to home. Patient was advised not to work or drive until reevaluated in clinic next week. He does not have a primary care provider. Arrangements made to see Dr. Mills at the [facility] in [place]. Total Time Total Time Spent Total Time Spent (In Minutes): 40 Discharge Plan Discharge Items Patient Disposition: Home - Self-Care Reason For Visit: HEADACHE, FALL, HEAD INJURY Discharge Diagnosis: right vertebral artery dissection mild blockage left carotid artery concussion high triglyceride level high blood pressure Condition: Good Discharge Goals: Decrease discomfort, Improve disease control and Prevent disease Activity: As commented below Activity Comment: gradually increase activity as tolerated; watch out for dizzy spells Driving/Machine Use Comment: no driving until seen in office next week for recheck Non-emergency contact: Primary Care Provider and Hospitalist Call non-emergency contact if: you have any medication questions and your symptoms worsen Diet: Heart Healthy Addtl Provider Instructions: APPOINTMENTS: 10/14/2018 1:00 PM (please arrive about 20 minutes early to check-in and co mplete paperwork) Chapis Mills MD [facility] NEW MEDICATIONS: aspirin- blood thinner to prevent strokes and heart attacks lisinopril- blood pressure medication atorvastatin- lowers cholesterol and triglycerides LAB RESULTS: Triglycerides 313 Total cholesterol 178 LDL cholesterol 70 HDL cholesterol 45 OTHER INSTRUCTIONS: Seek medical attention if you have: * headache, worsening dizziness, vision changes, difficulty speaking, difficulty swallowing, weakness in arms or legs, unsteady gait * chest pain or trouble breathing * abdominal pain, nausea, vomiting * diarrhea, dark stools or bloody stools * any unanswered questions or concerns Call 911 if symptoms are severe. Call if you have any questions or problems. My cell # is [phone]. You can also reach a [facility] hospitalist on duty at [facility] 24 hours a day by calling [phone]. You did not have a stroke, but please note the following info: Risk Factors for Stroke: You can reduce your chances of stroke by working with your medical provider to adopt a healthy lifestyle. Some specific ways to lower your chance of stroke are: * If you are a smoker, now is the time to stop smoking cigarettes * If you are diabetic, improve the control of your blood sugars * Avoid excessive amounts of alcohol * Control high blood pressure * Lose weight if you are overweight * Be sure to lead an active lifestyle * Eat a healthy diet low in salt, cholesterol and fat You should know about other risk factors for stroke that you are unable to control. These include: * Age 55 years or older * Male gender * Certain racial groups: , or / * Family History of Stroke, Mini stroke or Heart Attack * Sickle Cell Disease Follow Up: It is important for you to keep your follow up appointments with your medical provider. Who to Call and When: Medical Emergencies: Call 911 immediately if you experience any of the following warning signs and symptoms of Stroke: * Sudden numbness or weakness of the face, arm or leg, especially on one side of the body * Sudden confusion, trouble speaking or understanding * Sudden trouble seeing in one or both eyes * Sudden trouble walking, dizziness, loss of balance or coordination * Sudden severe headache with no cause Do not delay calling 911 if you experience any warning signs or symptoms of a stroke. Delay in seeking medical attention may affect what treatments can be given to you. . Prescriptions: New aspirin [Ecotrin Low Strength] 81 mg Tablet,Delayed Release (Dr/Ec) 81 mg PO QAM Qty: 30 RF: 12 lisinopril 2.5 mg Tablet 2.5 mg PO QAM Qty: 30 RF: 5 atorvastatin 40 mg tablet 40 mg PO DAILY Qty: 30 RF: 5 No Action No Known Home Medications RF: 0 Stand-Alone Forms: My [facility], Work/School Release (Inpt) Krames/Other Patient Handouts: Foods Heart Healthy Discharge Orders: Discharge Order (Routine); Ordered 10/07/18 Ordered By: Kolton Peraza Admission Data Admit Date/Time: 10/06/18 21:18 Attending Provider: Kolton Peraza Admit Provider: Hugh Sargent Primary Care Provider: PCP,NO Other Providers: Gume Hough ; Henrik Stephens Service: Telemetry Medical Other Interventions: Discharge Summary Assessment (RN) Last Done: 10/07/18 19:58 DC Date/Time DO NOT enter until pt leaves facility: 10/07/18 20:16
[2018-10-09 08:35] LABS: Hydrocodone Urine NEGATIVE NG/ML (CUTOFF=50); Hydromor Urine NEGATIVE NG/ML (CUTOFF=50); Morphine Urine 1440 NG/ML (CUTOFF=50); Norhydrocodone Conf Ur NEGATIVE NG/ML (CUTOFF=50); Noroxycodone Urine NEGATIVE NG/ML (CUTOFF=50); Oxycodone Urine NEGATIVE NG/ML (CUTOFF=50)
== END 2018-10-07 20:16 | disposition home or self-care (01) | DRG 301 ==
LOC: ED 15:34 → 2N 21:18

== ENCOUNTER 2019-11-24 21:21 | Observation (INO) ==
--- NOTE | 2019-11-24 23:43 | History & Physical Report ---
Date of Service November 24, 2019 Assessment & Plan (1) Stroke: Multiple infarcts of indeterminate/chronic duration on CT head done at [facility] Patient presented with headache/neck pain without neurologic deficits. Erratic compliance with home aspirin Rx for PVD hx vertebral artery dissection, hx PVD Hypertension, slightly elevated Hyperlipidemia on statin rx Hyperglycemia rule out DM Past tobacco abuse OBS Medical telemetry Aspirin for PVD/stroke prophylaxis. Patient counseled about need for compliance with antiplatelet Rx. MRI brain RE stroke undetermined duration on CT head Neurology consult RE stroke, unknown duration Vascular surgery consult as per patient/family request RE carotid artery disease Update lipid profile Check hemoglobin A1c DVT prophylaxis. SCDs Lovenox subcu Full code Text document was generated using Triond voice recognition software. It may contain grammatical or spelling errors. Kindly contact undersigned for clarification of any documentation item in question. Admission and Anticipated Discharge Date Admission Date: November 24, 2019 History of Present Illness Chief Complaint: Stroke work-up Primary Care Provider: No PCP currently. Patient has seen Anton Peters in the past. History obtained from patient and records. Medical history significant for hypertension, hyperlipidemia, history of vertebral artery dissection, hx PVD, past tobacco abuse. Last confinement September 2018 for neck pain and vertigo symptoms. Focal right vertebral artery dissection along with less than 50% narrowing L ICA carotid plaque noted on imaging. Patient discharged on aspirin and statin Rx. Lisinopril prescribed on discharge for new onset hypertension. Patient claims to be compliant with lisinopril and statin medications. Erratic aspirin intake as per patient. One-time Anton Peters PCP visit following discharge. No follow-up since. Yesterday afternoon patient was having early dinner at a pizza place when he experienced achy posterior neck pain going to his posterior head similar to last year's event. Some dizziness with nausea. No vomiting. No slurred speech, arm, or leg weakness. Symptoms resolved but later recurred as patient was walking in a shopping mall with his family. Stroke alert called upon patient arrival at [facility]. NIHSS 0 as per ER provider. EKG NSR as per ER provider. SBP 180s at the highest at the ER as per ER provider. CT head: Small lacunar infarct identified within right basal ganglia. Although indeterminate acuity, and acute lacunar infarct cannot be excluded. Correlation with MRI recommended. No acute intracranial hemorrhage. Mild encephalomalacia involving inferior right frontal lobe consistent with old infarct of brain insult. Small chronic appearing infarct identified involving the right cerebellar cortex. Mild atrophy. CT angio head : Artifact limits evaluation of the distal basilar artery with suggested mild stenosis. Stenosis of the P2 segment of the right posterior cerebral artery. Mild stenosis involving the left posterior cerebral artery. Bilateral anterior cerebral artery stenosis identified. Dominant left vertebral artery. CT angio neck : Calcified/noncalcified plaque proximal left ICA with less than 50% luminal narrowing/stenosis. Mural thrombus cannot be excluded. Atherosclerosis and less than 50% stenosis of the proximal right ICA. Stenosis identified on the V2 segment of right vertebral artery with moderate stenosis proximally. Dominant left vertebral artery. Ectatic aortic arch. Proximal descending thoracic aorta measuring 3.2 cm. TPA not recommended by tele-stroke neurologist. Patient/family requested to be transferred to [facility] for Neurology/Vascular surgery services. 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 Allergies Allergy/AdvReac Type Severity Reaction Status Date / Time No Known Allergies Allergy Verified 11/25/19 00:48 Home Medications Home Medications Medication Instructions Recorded Confirmed Type aspirin [Ecotrin Low Strength] 81 mg PO QAM #30 tab 10/07/18 11/25/19 Rx atorvastatin 40 mg PO DAILY #30 tab 10/07/18 11/25/19 Rx lisinopril 2.5 mg PO QAM #30 tab 10/07/18 11/25/19 Rx Past Med/Surg History Social History (Updated 10/06/18 @ 16:55 by Mirta Martinez) Smoking Status: Never smoker Do You Dip or Chew Tobacco: No; Hx Alcohol Use: Yes Alcohol type: beer Hx Substance Use: No Preferred Language: Setswana Communication Ability: Effective Chucking Machine Set Up Operator Tool Required: No Beliefs That Will Affect Care: None Current Living Situation: Spouse and Family Other Information That Helps Us Care for You: No Feels Safe at Home: Yes Safety Concerns: Feels Safe At This Time Review of Systems Review of Systems: As per HPI, all 10 systems reviewed, all other ROS negative Physical Exam Physical Exam: GENERAL: Comfortable, slightly anxious, no respiratory distress SKIN: Normal color, warm HEENT: [place] palpebral conjunctivae, no ptosis, dry buccal mucosa NECK : Supple, no tenderness CHEST : CTA, no tenderness HEART : RRR, no obvious murmurs ABDOMEN: Some distention, nontender EXTREMITIES : No LE swelling/tenderness, no other conspicuous deformities noted NEUROLOGIC : Coherent, no facial asymmetry, no other gross focality Results & Data Results & Data ([facility]) Vital Signs (Past 12 Hours) Vital Signs Height Weight Body Mass Index Blood Pressure Blood Pressure Position Temperature Temperature Source 6 ft 102.058 kg 30.5 134/82 Lying 36.4 C L Oral 11/25/19 00:16 11/25/19 00:16 11/25/19 00:16 11/25/19 03:12 11/25/19 03:12 11/25/19 03:12 11/25/19 03:12 Pulse Rate Respiratory Rate Pulse Oximetry 57 L 18 96 11/25/19 03:36 11/25/19 03:12 11/25/19 03:12 Laboratory Results [facility] (11/23) Hemoglobin 15.8, hematocrit 45, WBC 7, platelets 207 Sodium 145, potassium 3.9, chloride 111, CO2 27, BUN 14, creatinine 0.9, glucose [address] head, CT head/neck angiogram as per HPI
[2019-11-24] MEDS ORDERED: PROMETHAZINE HCL 12.5 MG in SODIUM CHLORIDE 0.9% 50 ML IV PRN (23:44)
[2019-11-24] MEDS ORDERED: TRAMADOL HCL 50 MG TABLET PO PRN (23:44)
[2019-11-24] MEDS ORDERED: ACETAMINOPHEN 325 MG TAB PO PRN (23:44)
[2019-11-25] MEDS ORDERED: SODIUM CHLOR 0.45% + 20MEQ KCL 20 MEQ/1,000 ML BAG IV ONE (01:41)
[2019-11-25] MEDS ORDERED: ASPIRIN 81 MG ECTAB PO STA (01:58)
--- NOTE | 2019-11-25 06:45 | Magnetic Resonance Report ---
MR angio head wo con HISTORY: 54 years-old Male stroke acute strokelike symptoms COMPARISON: MRI brain of same day TECHNIQUE: MRI of the head was obtained without use of IV contrast utilizing 3-D [id number] seque [facility] with MIP reformats. All measurements were obtained according to NASCET criteria. FINDINGS: Process Improvement Consultant localizer images demonstrate no gross extracranial abnormality. The imaged bilateral internal c arotid arteries are widely patent. Study is mildly motion degraded. Mild luminal narrowing of the dis dennise left M1 segment. The right middle cerebral artery is widely patent. The anterior cerebral and ant erior to indicating arteries are patent. The left vertebral artery appears dominant. The majority of the right vertebral artery terminates into the PICA. Patent basilar artery. origin of the left posterior cerebral artery. The posterior cerebral arteries are widely patent. No cerebral venous sinu s thrombosis identified. No aneurysm, dissection, high-grade stenosis or proximal branch occlusion. IMPRESSION: Unremarkable MRA of the head. ACT 112: Negative or not required by law. The above report was generated using voice recognition software. It may contain grammatical, syntax o r spelling errors. Electronically signed by: Gerardo Perales M.D. 11/25/2019 6:44 AM
--- NOTE | 2019-11-25 07:34 | Magnetic Resonance Report ---
MRI OF THE BRAIN WITHOUT CONTRAST CLINICAL HISTORY: stroke COMPARISON STUDY: 10/06/2018 FINDINGS: Sagittal T1, axial diffusion, proton density and T2 weighted axial, coronal FLAIR, and axial T1-weigh gregorio images were acquired. No intra or extra-axial mass lesions are visualized Axial diffusion-weighted images reveal no evidence of acute or subacute infarction. There is no evidence of ventricular dilatation. Proton density T2-weighted and FLAIR images reveal scattered foci of increased T2 signal within the w scot matter, likely on a small vessel basis. There is an old right cerebellar infarct. There are old areas of infarct/encephalomalacia within the frontal lobes. There are no abnormal flow voids. IMPRESSION: 1. No acute intracranial findings 2. No evidence of acute or subacute infarction 3. No evidence of intracranial mass in this noncontrast study 4. Stable white matter disease. Stable areas of infarction/encephalomalacia within the frontal lobes and right cerebellar hemisphere ACT 112: Negative or not required by law. Electronically signed by: Kaushal Matthews M.D. 11/25/2019 7:33 AM
[2019-11-25 08:05] LABS: Basophils # (auto) 0.01 K/uL (0-0.2); Basophils % (auto) 0.2 %; Eosinophils # (auto) 0.17 K/uL (0-0.5); Eosinophils % (auto) 3.3 %; Hematocrit (blood only) 42.2 % (42-52); Hemoglobin 14.3 g/dL (14.0-18.0); Immature Granulocytes # (auto) 0.01 K/uL (0.00-0.02); Immature Granulocytes % (auto) 0.2 %; Lymphocytes # (auto) 1.35 K/uL (1.2-3.4); Lymphocytes % (auto) 26.4 %; Mean Corpuscular Hemoglobin 31.4 pg (25-34); Mean Corpuscular Hgb Conc 33.9 g/dL (32-36); Mean Corpuscular Volume 92.5 fL (80-100); Monocytes # (auto) 0.31 K/uL (0.11-0.59); Monocytes % (auto) 6.1 %; Neutrophils # (auto) 3.26 K/uL (1.4-6.5); Neutrophils % (auto) 63.8 %; Platelet Count 161 K/uL (130-400); RDW Coefficient of Variation 13.2 % (11.5-14.5); RDW Standard Deviation 44.6 fL (36.4-46.3); Red Blood Count 4.56 M/uL (4.7-6.1); White Blood Count 5.11 K/uL (4.8-10.8)
[2019-11-25 08:15] LABS: Partial Thromboplastin Ratio 0.9; Partial Thromboplastin Time 26.1 Seconds (21.0-31.0)
[2019-11-25 08:37] LABS: BUN Creatinine Ratio 13.8 (10-20); Calcium 8.1 mg/dl (8.5-10.1); Creatinine Clr Calc Pharmacy 130.6 ml/min; Est GFR (African American) 117.2; Est GFR (Non-African American) 101.1; Magnesium 2.3 mg/dl (1.8-2.4); Potassium 3.7 mmol/L (3.5-5.1)
[2019-11-25] MEDS ORDERED: ENOXAPARIN INJ 40 MG/0.4 ML SYR SQ SCH (09:00)
[2019-11-25] MEDS ORDERED: ATORVASTATIN 40 MG TAB PO SCH (09:00)
[2019-11-25 09:02] LABS: Estimated Average Glucose 100 mg/dl; Hemoglobin A1C 5.1 % (4.5-5.6)
--- NOTE | 2019-11-25 13:19 | Consultation ---
Date of Consultation November 25, 2019 Assessment & Plan (1) Carotid artery disease: This patient has less than 50% narrowing of both internal carotid arteries. He had no focal deficits during the period of headache and dizziness. None of his symptoms are related to this carotid narrowing. No further intervention is needed at this time for his carotid stenosis which is minimal. (2) Vertebral artery dissection: He does have a history of a right vertebral dissection. He is left vertebral dominant. The left vertebral originates from the arch itself. The right vertebral has a moderate stenosis proximally. As with the carotids no intervention is needed for this lesion. Thank you very much for letting us participate in the care of this patient. History of Present Illness Reason for Consultation: Reason for consult was abnormal CT angios of the neck Attending Physician: Lupe Burroughs, History of Present Illness This is a 54-year-old male who a year ago had a vertebral dissection of the right vertebral artery. This was according to him a very short distance. It was associated with neck pain prior to the finding of the dissection. He was fine until yesterday when he developed right-sided neck pain and headache and slight dizziness. This occurred while he was eating dinner. It somewhat resolved but recurred in the mall while he was walking after. He was seen in an outside institution who did a CT angiogram which showed a dominant left vertebral, a right vertebral with moderate stenosis proximally, and less than 50% narrowing of both his internal carotid arteries. He had no focal deficits of weakness or paresthesias of either the upper or lower extremities. He denies any facial droop. He denied any slurred speech. Allergies Allergy/AdvReac Type Severity Reaction Status Date / Time No Known Allergies Allergy Verified 11/25/19 00:48 Home Medications Home Medications Medication Instructions Recorded Confirmed Type aspirin [Ecotrin Low Strength] 81 mg PO QAM #30 tab 10/07/18 11/25/19 Rx atorvastatin 40 mg PO DAILY #30 tab 10/07/18 11/25/19 Rx lisinopril 2.5 mg PO QAM #30 tab 10/07/18 11/25/19 Rx Patient History Medical History No significant active problems No significant family history No significant medical problems No significant past medical history Surgical History No significant past surgical history Social History Smoking Status: Never smoker Do You Dip or Chew Tobacco: No; Hx Alcohol Use: Yes Alcohol type: beer Hx Substance Use: No Preferred Language: Slovenian Communication Ability: Effective Hospice Aide Required: No Beliefs That Will Affect Care: None Current Living Situation: Spouse and Family Other Information That Helps Us Care for You: No Feels Safe at Home: Yes Safety Concerns: Feels Safe At This Time Review of Systems Review of Systems: All systems reviewed & are unremarkable except as noted in HPI & below Physical Exam Constitutional: WD/WN, vitals as above Respiratory: + abnormal respiratory effort and no respiratory distress Auscultation: lungs clear to auscultation bilaterally Cardiovascular: Rate/Rhythm: regular rate and regular rhythm Gastrointestinal (Abdomen): Inspection/Auscultation: abdomen normal to inspection Neurologic: CN's II-XI intact bilaterally and awake; no focal motor deficits Motor/Sensory: normal movement Psychiatric: Orientation: alert and oriented x 3 Results & Data Vital Signs (Past 12 Hours) Vital Signs Temp Pulse Pulse Resp BP Pulse Ox 11/25/19 11:32 36.9 C 58 L 18 124/77 93 11/25/19 08:32 36.8 C 55 L 18 134/81 97 11/25/19 07:31 55 L 11/25/19 03:36 57 L 11/25/19 03:12 36.4 C L 55 L 18 134/82 96
--- NOTE | 2019-11-25 16:25 | Communication Note ---
Date of Service: November 25, 2019 I saw Mr. Hawley today reviewed his chart his prior neurologic consultation was with Abbi Cox PA-C and Dr. Henrik Stephens and reviewed his images are listed imaging reports from [facility] and our actual images here which include MRI and MR angiography of the cerebral vessels. 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 He was discharged with instructions to manage his risk factors which included hypertension dyslipidemia and he was supposed to take antiplatelet agents in the form of aspirin He really was not very compliant with the aspirin has not taken it in some time but did not apparently take the lisinopril and the lipid-lowering agent but only had 1 doctor visit after the admission and has not been back Who presented with neck pain and vertigo of brief duration while eating dinner which cleared and then had a recurrent episode while shopping at the mall also of brief duration, presented to [place] and at the evaluation and then was transferred here because of our familiarity with his case and specifically for vascular surgery and neurologic consultations. I am providing the latter needs already been seen by Dr. Avina who has reviewed his images and agrees that he is left vertebral dominant has a mild narrowing of the right vertebral, some minor narrowing of the internal carotids and a normal MRI scan in terms revealing no evidence for a new acute infarction. No surgical intervention is indicated On exam he is awake alert oriented in 3 spheres with intact cranial nerves no Osman's syndrome normal eye movements no vertigo induced by head movement no facial weakness noted loss of facial sensation with clear speech, normal cerebellar exam without dystaxia tremor or tics choreiform activity drift or pronation sign and with no cerebellar dysmetria, with hypoactive but present reflexes, downgoing toes, normal muscle strength and normal sensation At this point he in my opinion could be discharged on aspirin. I do not see the need to go with dual antiplatelet treatment here as he does not have a stroke and was noncompliant with his antiplatelet agent to begin with so the odds of him taking 2 agents is probably very slim and I do not think it is medically indicated without evidence for acute infarction In theory he should follow-up with neurology in about 4 to 6 weeks and really needs to get with his primary care physician and have his cholesterol etc. and blood pressure followed more closely Kolton Matthews MD
--- NOTE | 2019-11-25 17:25 | Discharge Summary ---
Date of Service November 25, 2019 Admission HPI Per Admitting Provider History obtained from patient and records. Medical history significant for hypertension, hyperlipidemia, history of vertebral artery dissection, hx PVD, past tobacco abuse. Last confinement September 2018 for neck pain and vertigo symptoms. Focal right vertebral artery dissection along with less than 50% narrowing L ICA carotid plaque noted on imaging. Patient discharged on aspirin and statin Rx. Lisinopril prescribed on discharge for new onset hypertension. Patient claims to be compliant with lisinopril and statin medications. Erratic aspirin intake as per patient. One-time Anton Peters PCP visit following discharge. No follow-up since. Yesterday afternoon patient was having early dinner at a pizza place when he experienced achy posterior neck pain going to his posterior head similar to last year's event. Some dizziness with nausea. No vomiting. No slurred speech, arm, or leg weakness. Symptoms resolved but later recurred as patient was walking in a shopping mall with his family. Stroke alert called upon patient arrival at [facility]. NIHSS 0 as per ER provider. EKG NSR as per ER provider. SBP 180s at the highest at the ER as per ER provider. CT head: Small lacunar infarct identified within right basal ganglia. Although indeterminate acuity, and acute lacunar infarct cannot be excluded. Correlation with MRI recommended. No acute intracranial hemorrhage. Mild encephalomalacia involving inferior right frontal lobe consistent with old infarct of brain insult. Small chronic appearing infarct identified involving the right cerebellar cortex. Mild atrophy. CT angio head : Artifact limits evaluation of the distal basilar artery with suggested mild stenosis. Stenosis of the P2 segment of the right posterior cerebral artery. Mild stenosis involving the left posterior cerebral artery. Bilateral anterior cerebral artery stenosis identified. Dominant left vertebral artery. CT angio neck : Calcified/noncalcified plaque proximal left ICA with less than 50% luminal narrowing/stenosis. Mural thrombus cannot be excluded. Atherosclerosis and less than 50% stenosis of the proximal right ICA. Stenosis identified on the V2 segment of right vertebral artery with moderate stenosis proximally. Dominant left vertebral artery. Ectatic aortic arch. Proximal descending thoracic aorta measuring 3.2 cm. TPA not recommended by tele-stroke neurologist. Patient/family requested to be transferred to [facility] for Neurology/Vascular surgery services. 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 Admission Exam Per Admitting Provider GENERAL: Comfortable, slightly anxious, no respiratory distress SKIN: Normal color, warm HEENT: [place] palpebral conjunctivae, no ptosis, dry buccal mucosa NECK : Supple, no tenderness CHEST : CTA, no tenderness HEART : RRR, no obvious murmurs ABDOMEN: Some distention, nontender EXTREMITIES : No LE swelling/tenderness, no other conspicuous deformities noted NEUROLOGIC : Coherent, no facial asymmetry, no other gross focality Principal Diagnosis vertigo-resolved s/p vertebral artery dissection Discharge Data Allergies Allergy/AdvReac Type Severity Reaction Status Date / Time No Known Allergies Allergy Verified 11/25/19 00:48 Consultations 11/25/19 01:58 Consult Vascular Surgery Routine 11/25/19 05:21 Consult Neurology Routine Ordered Studies 11/25/19 01:59 MR angio head wo con Routine MR brain wo con Routine Hospital Course (1) Vertebral artery dissection: (2) Vertigo: 54-year-old man with a history of right vertebral dissection presenting with neck pain, vertigo and syncope, presented again to the ER with neck pain and vertigo. He reports some noncompliance with aspirin, lisinopril and the lipid-lowering agent given at time of discharge on the prior admission. Vascular surgery was consulted and did not recommend additional vascular surgery intervention at this time. Neurology was consulted and noted orientation in 3 spheres with intact cranial nerves and no Osman syndrome. He had normal eye movements, no vertigo endorsed by head movement and no facial weakness or loss of facial sensation with clear speech, normal cerebellar exam without dystaxia, tremor or tics. Remainder of neurologic exam was normal. He was not thought to have had a stroke and it was felt with the noncompliance with agents in the past it was better he go back on aspirin as opposed to dual antiplatelet therapy. Neurology did not think that is medically indicated without evidence for an acute infarction. Close neurology follow-up in 4 to 6 weeks was recommended and primary care physician was recommended to have his cholesterol and blood pressure follow more closely and optimized to goal. On 11/24 triglycerides were 74, total cholesterol 97, LDL 40, HDL 42. Additional stroke work-up included a brain MRI revealing no acute intracranial findings, no evidence of acute or subacute infarction, no evidence of intracranial mass in this noncontrast study, stable white matter disease, stable areas of infarction/encephalomalacia within the frontal lobes and right cerebellar hemisphere. A head MRA was unremarkable. The patient had been transferred from [facility] to [facility]. At the previous facility a CT scan without contrast revealed a possible small lacunar infarct identified within the right basal ganglia, no acute intracranial hemorrhage, mild encephalomalacia involving the inferior right frontal lobe consistent with an old infarct or brain insult, a small chronic appearing infarct is identified in the right cerebellar cortex and mild atrophy. At [facility] a CT angiogram of the neck was performed revealing "suggested mild stenosis of the distal basilar artery, stenosis of the P2 segment of the right posterior cerebral artery, mild stenosis involving the left posterior cerebral artery, bilateral anterior cerebral artery stenosis, suggested stenosis of the M2 segments of the middle cerebral arteries, of dominant left vertebral artery. At time of discharge the patient was mentating and ambulating at baseline and tolerating p.o. He was hemodynamically stable and afebrile and sent home in stable condition with close primary care follow-up and ultimate neurology follow-up with [facility] neurology team in 4 to 6 weeks. Total Time Total Time Spent Total Time Spent (In Minutes): 60 Total Time Includes: Examination of the Patient, Discharge Planning, Medication Reconciliation and Communication With Other Providers Discharge Plan Discharge Items Patient Disposition: Home - Self-Care Reason For Visit: HYPERTENSIVE URGENCY Discharge Diagnosis: Vertigo-resolved Condition on Discharge: Good Activity: Resume your previous activity Non-emergency contact: Primary Care Provider Call non-emergency contact if: you have any medication questions, your symptoms worsen, your pain is not controlled, your pain is worsening, your pain is unusual for you, your pain is concerning for you and you have a fever Follow-up/Referrals: Nikolas Avina MD [Physician] - (Patient can call with questions or concerns. [phone]) PCP,NO [Primary Care Provider] - Diet: Heart Healthy Addtl Attending Provider Instructions: Please take all medications as instructed on discharge list below. You will need to start taking a baby aspirin (81mg) every day. Please follow-up with [facility] Neurology in 4-6 weeks for a follow-up to this event and this hospitalization. It is recommended that you follow-up with your primary care physician (PCP) within the next 1-2 weeks to ensure your symptoms have not return, and to continue the discussion of risk factor modification for stroke moving forward. It was a pleasure taking care of you! Please call if you have any questions or problems. You can reach a [facility] hospitalist on duty at [facility] 24 hours a day by calling [phone]. Take care of yourself. Lupe Burroughs DO [facility] Hospitalist Pending Studies at Discharge: No Studies:: Brain MRI Head MRA Stand-Alone Forms: My [facility], Opioid Pain Management, Work/School Release (Inpt), Smoking Cessation Medications and DC Order Prescriptions: Continued lisinopril 2.5 mg Tablet 2.5 mg PO QAM Qty: 30 RF: 5 atorvastatin 40 mg tablet 40 mg PO DAILY Qty: 30 RF: 5 aspirin [Ecotrin Low Strength] 81 mg Tablet,Delayed Release (Dr/Ec) 81 mg PO QAM Qty: 90 RF: 2 Discharge Orders: Discharge Order (Routine); Ordered 11/25/19 Ordered By: Lupe Burroughs Admission Data Admit Date/Time: 11/24/19 23:25 Attending Provider: Lupe Burroughs Admit Provider: Hugh Sargent Primary Care Provider: PCP,NO Other Providers: Nikolas Avina ; Abbi Cox ; Kolton Matthews ; Abbi Rogers ; Henrik Stephens. Other Interventions: Discharge Summary Assessment (RN) Last Done: 11/25/19 17:39 DC Date/Time DO NOT enter until pt leaves facility: 11/25/19 18:31
[2019-11-26] MEDS ORDERED: ASPIRIN 81 MG ECTAB PO SCH (09:00)
== END 2019-11-25 18:31 | disposition home or self-care (01) ==
LOC: 2W → SUATTDRO 23:25
DX: I77.74 Dissection of vertebral artery; R42 Dizziness and giddiness; I65.23 Occlusion and stenosis of bilateral carotid arteries; I16.0 Hypertensive urgency; Z79.82 Long term (current) use of aspirin; E78.5 Hyperlipidemia, unspecified; I10 Essential (primary) hypertension; R73.9 Hyperglycemia, unspecified; Z79.899 Other long term (current) drug therapy

== ENCOUNTER 2024-03-30 10:16 | Observation (INO) ==
[2024-03-30 11:20] LABS: Basophils # (auto) 0.07 K/uL (0.00-0.20); Basophils % (auto) 1.5 %; Eosinophils # (auto) 0.25 K/uL (0.00-0.50); Eosinophils % (auto) 5.2 %; Hematocrit (blood only) 36.4 % (42.0-52.0); Hemoglobin 12.2 g/dl (14.0-18.0); Immature Granulocytes # (auto) 0.01 K/uL (0.01-0.20); Immature Granulocytes % (auto) 0.2 %; Lymphocytes # (auto) 0.88 K/uL (1.20-3.40); Lymphocytes % (auto) 18.4 %; Mean Corpuscular Hemoglobin 31.4 pg (25.0-34.0); Mean Corpuscular Hgb Conc 33.5 g/dL (32.0-36.0); Mean Corpuscular Volume 93.8 fL (80.0-100.0); Mean Platelet Volume 9.5 fL (9.4-12.4); Monocytes # (auto) 0.39 K/uL (0.11-0.59); Monocytes % (auto) 8.2 %; Neutrophils # (auto) 3.17 K/uL (1.40-6.50); Neutrophils % (auto) 66.5 %; Platelet Count 354 K/uL (130-400); RDW Coefficient of Variation 12.2 % (11.5-14.5); RDW Standard Deviation 42.1 fL (36.4-46.3); Red Blood Count 3.88 M/uL (4.70-6.10); White Blood Count 4.77 K/ul (4.8-10.8)
--- NOTE | 2024-03-30 11:23 | XRay Report ---
XR tibia fibula RT 2V HISTORY: 59 years-old Male Lower leg trauma soft tissue injury of the right lower leg COMPARISON: None TECHNIQUE: 2 views of the right tibia and fibula FINDINGS: Moderate diffuse soft tissue prominence with probable superficial venous varicosities. Mild osteoarth ritis of the ankle and knee. Degenerative spurring of the calcaneus. No acute fracture, dislocation, osseous erosion or opaque foreign body. IMPRESSION: Soft tissue swelling without acute osseous abnormality. ACT 112: Negative or not required by law. The above report was generated using voice recognition software. It may contain grammatical, syntax o r spelling errors. Electronically signed by: Raphael Perales M.D. 03/30/2024 11:22 AM
[2024-03-30 11:48] LABS: Albumin Globulin Ratio 1.2 (0.9-2); Albumin Level 3.8 gm/dl (3.4-5.0); BUN Creatinine Ratio 14.8 (10-20); Bilirubin,Total 1.1 mg/dl (0.2-1.0); Calcium 8.9 mg/dl (8.6-10.3); Creatinine Clr Calc Pharmacy 106.4 ml/min; Globulin 3.1 gm/dl (2.5-4.0); Potassium 3.9 mmol/L (3.5-5.1); Total Protein 6.9 gm/dl (6.0-8.3)
[2024-03-30] MEDS ORDERED: VANCOMYCIN CONSULT ACTIVE PRN (12:37)
--- NOTE | 2024-03-30 12:40 | Emergency Department Note ---
Impression & Plan Cellulitis, Acute leg pain, Leukopenia ED Provider Note NAME: JULIO OSBORNE AGE: 59 SEX: M : 1965 ARRIVES VIA: Walk-In INFORMANT: Patient ED PROVIDER(S): Iraj Gan DO CHIEF COMPLAINT: Right leg infection HPI: Patient is a 59-year-old male who presents to the ER with a past medical history of vertebral artery dissection, stroke, dyslipidemia and CAD for right lower extremity infection. He notes that this has been present for the past 5 years off and on. He stopped going to the wound care clinic several months ago and has been gradually getting worse. He saw Dr. Bower who is his PCP and referred him in to be admitted. He denies any headache or change in vision. No chest pain or shortness of breath. No nausea, vomiting, or diarrhea. No dysuria, urgency, or frequency. ADDITIONAL HISTORY OBTAINED: Per HPI Chronic Medical/Social Conditions Affecting Care: Per HPI PAST MEDICAL HISTORY:See Below PAST SURGICAL HISTORY:See Below FAMILY HISTORY:See Below SOCIAL HISTORY:See Below HOME MEDICATIONS:See Below ALLERGIES:See Below VITALS:See Below PHYSICAL EXAMINATION: GENERAL: Sitting up in bed, alert, well appearing, well nourished, no distress, non-toxic EYE EXAM: normal conjunctiva. PERRL and EOM's grossly intact. OROPHARYNX: mucous membranes are moist LUNGS: Clear to auscultation. Normal chest wall mechanics HEART: no murmurs, S1 normal and S2 normal ABDOMEN: abdomen soft, non-tender, normo-active bowel sounds, no masses, no rebound or guarding. UPPER EXTREMITIES: upper extremities are grossly normal. LOWER EXTREMITIES: Right lower extremity with multiple ulcers and surrounding erythema wrapped in toilet paper. DP 2 out of 4. Flexion-extension right hip knee and ankle intact. Foul-smelling with mild green/yellow drainage. NEURO EXAM: Normal sensorium, cranial nerves II-XII grossly intact, normal speech, no gross weakness of arms, no gross weakness of legs. MEDICAL DECISION MAKING: Patient is a 59-year-old male who presents to the ER for the above-stated complaint. IV was established and blood work was obtained. External records were reviewed from [facility] and he was sent in by Dr. Sky for admission for infection of his right lower extremity. Labs show mild leukopenia 4.7 thousand. Mild anemia 12. BMP along with LFTs and bilirubin was unremarkable. Patient was given IV vancomycin and Rocephin. Updated bedside. Discussed case with the hospitalist for further evaluation management treatment. Consults/Care Managements Discussions: Per MDM Triage Nursing notes reviewed. Limited review of prior medical records performed Vital Signs: reviewed and remarkable for HTN Differential diagnosis: Cellulitis, abscess, MRSA infection, DVT, necrotizing fasciitis, dermatitis, drug eruption, allergic reaction, as well as other pathologies. ER treatment provided: See below Diagnostics interpreted by me include EKG and cardiac monitoring as listed below: -Cardiac Monitoring: An order was placed for continuous cardiac monitoring. The monitor shows a rate of 60 with sinus rhythm. -ECG: none -Laboratory studies:Interpreted by me as stated above in MDM and shown below. Imaging studies: Xrays: As interpreted by me:none CTs show: none Procedures:none Critical Care: None Past Med/Surg History Problem List (Updated 03/30/24 @ 18:21 by Iraj Gan DO) Leukopenia (Acute) Acute leg pain (Acute) Cellulitis (Acute) Wound of right lower extremity PVD (peripheral vascular disease) Vertigo Stroke Vertebral artery dissection (Acute) Elevated TSH (Chronic) Hypertension (Chronic) Carotid artery disease (Chronic) Dyslipidemia (Chronic) Concussion (Acute) Medical History (Updated 03/30/24 @ 18:21 by Iraj Gan DO) No significant active problems No significant medical problems No significant past medical history No significant family history Surgical History No significant past surgical history Family History (Updated 03/30/24 @ 14:01 by Maggie Corey PA-C) Mother Coronary heart disease Social History Smoking Status: Former smoker Do You Dip or Chew Tobacco: No; Hx Alcohol Use: Yes Alcohol type: beer Hx Substance Use: No Preferred Language: Danish Communication Ability: Effective 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 Required: No Beliefs That Will Affect Care: None Current Living Situation: Spouse and Family Feels Safe at Home: Yes Assistive Devices: None Allergies Allergies Allergy/AdvReac Type Severity Reaction Status Date / Time No Known Allergies Allergy Verified 03/30/24 15:25 Home Meds Home Medications Medication Instructions Recorded Confirmed duloxetine 30 mg capsule,delayed 30 mg PO QAM 03/30/24 03/30/24 release gabapentin 300 mg capsule 300 mg PO HS 03/30/24 03/30/24 Results & Data (ED) Vital Signs Vital Signs - 24 hr 03/30/24 10:24 03/30/24 12:30 03/30/24 12:31 Temperature 36.6 C Temperature Source Temporal Artery Scan Pulse Rate 80 66 Pulse Rate [Apical] 66 Respiratory Rate 20 18 Respiratory Effort / Characteristics Non-Labored Spontaneous Non-Labored Spontaneous Respiratory Depth Normal Normal Respiratory Pattern Regular Blood Pressure 157/97 H Blood Pressure [Right Arm] 148/104 H Blood Pressure Mean 117 Blood Pressure Mean [Right Arm] 118 Pulse Oximetry 96 96 Oxygen Delivery Method Room Air Room Air Sepsis Recent Fever Within 48 Hours No Sepsis New/Unexplained Change in Mental Status N/A Sepsis Action Taken by Nursing No Action Required Laboratory Data 03/30/24 11:00 03/30/24 11:00 Lab Results 03/30/24 Range/Units 11:00 WBC 4.77 L (4.8-10.8) K/ul RBC 3.88 L (4.70-6.10) M/uL Hgb 12.2 L (14.0-18.0) g/dl Hct 36.4 L (42.0-52.0) % MCV 93.8 (80.0-100.0) fL MCH 31.4 (25.0-34.0) pg MCHC 33.5 (32.0-36.0) g/dL RDW Std Deviation 42.1 (36.4-46.3) fL RDW Coeff of Maria Luisa 12.2 (11.5-14.5) % Plt Count 354 (130-400) K/uL MPV 9.5 (9.4-12.4) fL Immature Gran % (Auto) 0.2 % Neut % (Auto) 66.5 % Lymph % (Auto) 18.4 % [place] % (Auto) 8.2 % Eos % (Auto) 5.2 % Baso % (Auto) 1.5 % Neut # (Auto) 3.17 (1.40-6.50) K/uL Lymph # (Auto) 0.88 L (1.20-3.40) K/uL [place] # (Auto) 0.39 (0.11-0.59) K/uL Eos # (Auto) 0.25 (0.00-0.50) K/uL Baso # (Auto) 0.07 (0.00-0.20) K/uL Immature Gran # (Auto) 0.01 (0.01-0.20) K/uL Sodium 140 (136-145) mmol/L Potassium 3.9 (3.5-5.1) mmol/L Chloride 106 (98-107) mmol/L Carbon Dioxide 27 (21-32) mmol/L Anion Gap 7 (3-11) BUN 12 (6-23) mg/dl Creatinine 0.81 (0.6-1.4) mg/dl Est Cr Clr Drug Dosing 106.4 ml/min eGFR 100.94 BUN/Creatinine Ratio 14.8 (10-20) Glucose 103 H (70-99(Fasting)) mg/dl Calcium 8.9 (8.6-10.3) mg/dl Total Bilirubin 1.1 H (0.2-1.0) mg/dl AST 11 L (13-39) U/L ALT 8 (7-52) U/L Alkaline Phosphatase 43 (34-104) U/L Total Protein 6.9 (6.0-8.3) gm/dl Albumin 3.8 (3.4-5.0) gm/dl Globulin 3.1 (2.5-4.0) gm/dl Albumin/Globulin Ratio 1.2 (0.9-2) Administered Medications Oxycodone HCl (Oxycodone Hcl Ir 5 Mg Tab (Immediate Release)) 5 mg PO Q6H PRN PRN Reason: Severe Pain (Scale 7, 8, 9,10) Stop: 04/13/24 16:36 Last Admin: 03/30/24 17:39 Dose: 5 mg Documented By: [facility] Discontinued Medications Ceftriaxone Sodium (Rocephin) 2,000 mg in 50 mls @ 100 mls/hr IV NOW STA Stop: 03/30/24 13:06 Last Infusion: 03/30/24 13:24 Dose: Infused Documented By: Admin: 03/30/24 12:50 Dose: 100 mls/hr Documented By: CLARA Vancomycin HCl 1,750 mg/ (Sodium Chloride) 535 mls @ 200 mls/hr IV NOW ONE Stop: 03/30/24 15:17 Last Infusion: 03/30/24 16:20 Dose: Infused Documented By: Admin: 03/30/24 13:24 Dose: 200 mls/hr Documented By: GRIS Ketorolac Tromethamine (Ketorolac 30 Mg/Ml Vial) 30 mg IV NOW ONE Stop: 03/30/24 14:11 Last Admin: 03/30/24 15:13 Dose: 30 mg Documented By: KAREEM Lisinopril (Lisinopril 5 Mg Tab) 5 mg PO NOW ONE Stop: 03/30/24 16:10 Last Admin: 03/30/24 16:22 Dose: 5 mg Documented By: Imaging Data Radiologist's Impression: Tibia/Fibula X-Ray 03/30/24 10:28 XR tibia fibula RT 2V HISTORY: 59 years-old Male Lower leg trauma soft tissue injury of the right lower leg COMPARISON: None TECHNIQUE: 2 views of the right tibia and fibula FINDINGS: Moderate diffuse soft tissue prominence with probable superficial venous varicosities. Mild osteoarthritis of the ankle and knee. Degenerative spurring of the calcaneus. No acute fracture, dislocation, osseous erosion or opaque foreign body. IMPRESSION: Soft tissue swelling without acute osseous abnormality. ACT 112: Negative or not required by law. The above report was generated using voice recognition software. It may contain grammatical, syntax or spelling errors. Electronically signed by: Raphael Perales M.D. 03/30/2024 11:22 AM Discharge Plan Visit Data Chief Complaint: Infection Stated Complaint: INFECTION IN RT LEG ED Provider: Iraj Gan Discharge Problem: Cellulitis, Acute leg pain, Leukopenia Patient Disposition: Admitted As Inpatient Discharge Instructions Interventions: ED Discharge Assessment Last Done: 03/30/24 17:53 Discharge Problem: Cellulitis Qualifiers: Site of cellulitis: unspecified site Qualified Code(s): L03.90 - Cellulitis, unspecified Acute leg pain Qualifiers: Laterality: right Qualified Code(s): M79.604 - Pain in right leg Leukopenia Qualifiers: Leukopenia type: unspecified Qualified Code(s): D72.819 - Decreased white blood cell count, unspecified
[2024-03-30] MEDS: cefTRIAXone SODIUM 2,000 MG/50 ML BAG IV STA (12:50)
[2024-03-30] MEDS: VANCOMYCIN HCL 1,750 MG in SODIUM CHLORIDE 0.9% 500 ML IV ONE (13:24)
--- NOTE | 2024-03-30 13:54 | History & Physical Report ---
<Statement entered by Kelechi Williamson, DO - 03/30/24 14:42> I have seen and examined the patient and have discussed the case with the provider above. I have reviewed the advanced practitioner's documentation, and I agree with, and take responsibility for that plan of care. Patient seen and examined while still in the ED. Patient reports that he has been self doctoring these chronic venous ulcers for years. Seems as though they just, worsened over the past few weeks. Patient reports he has had some vascular studies in the past he has been told that his arterial circulatory system is fine it is his venous system that is the problem. Has declined to Unna boots in the past. Physical exam: Significant venous ulcers right lower extremity with venous stasis dermatitis. Venous stasis dermatitis right lower extremity withminimal ulcerations Patient with severe venous stasis ulcerations with possibly some mild cellulitis. Patient will most likely benefit from a vascular evaluation but ultimately most likely will need ongoing wound clinic and would benefit from Unna boots to help with healing. Discussed plan of care as outlined below with STEPHENIE Date of Service March 30, 2024 Assessment & Plan (1) PVD (peripheral vascular disease): (2) Wound of right lower extremity: (3) Hypertension: Plan This is a 59-year-old male who has significant past medical history of hypertension, hypertriglyceridemia, history of vertebral artery dissection, left carotid artery plaque who presents to ED at the referral of PCP due to chronic right lower extremity wounds. Pt has had right lower extremity wounds for 5 years that he has seen outpt providers for on and off. He mostly has been doctoring himself and using OTC Aspercreme. PVD Right lower extremity vascular wounds admit to medical consult wound care nurse - spoke to her for initial recs Aquacel,and kerlix continue empiric antibiotic w/ vanco/rocephin given surrounding erythema Venous/Arterial studies ordered obtain a1c, lipid panel in a.m. surface cultures HTN: hx of, was prescribed lisinopril 5mg daily but has not been taking, monitor for now but add lisinopril if consistently elevated Hypertriglyceridemia: previously on statin, but hasn't taken for a long time Medication noncompliance Hx of vertebral artery dissection: add ASA, Statin back on, pt needs consistent education on being compliant with medications DVT ppx: SQ Lovenox FULL CODE PCP: Chapis De Paz Dispo: admit to medical Pt was seen and examined in collaboration with Dr. Ramey, please see addendum I spent a total of 76 minutes reviewing notes, outpatient records, labs, medication, coordinating, documenting and providing care for this patient excluding time spent in the performance of separately billed services. History of Present Illness Chief Complaint: Chronic leg wounds. Primary Care Provider: Dr. Ramey This is a 59-year-old male who has significant past medical history of hypertension, hypertriglyceridemia, history of vertebral artery dissection, left carotid artery plaque who presents to ED at the referral of PCP due to chronic right lower extremity wounds. He was seen in clinic yesterday by outpatient provider due to worsening lower extremity, right, wounds. He has been dressing them himself with a topical Aspercreme, lidocaine and using gauze/toilet paper to cover it. He previously was seen in wound clinic but has been dealing with these wounds for 5 years now. He does not routinely follow with primary care provider. He previously was prescribed medications including lisinopril and atorvastatin, but admittedly has not been taking these for quite some time. He states he works approximately 15 hours a day on his feet and does not have time to take his medications. He denies any tobacco use. He does occasionally drink alcohol. He denies any illicit drug use. His appetite has otherwise been stable. He denies any fever, chills, sweats, lightheadedness, dizziness, chest pain, shortness of breath, nausea, vomiting or abdominal pain. 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 He does complain of pain to the RLE. Dx with Vertebral artery dissection along with less than 50% narrowing L ICA carotid plaque noted on imaging. Patient discharged on aspirin and statin Rx. This was in 2019. He is supposed lipid affluent flex lifestyle to be on asa and statin. Allergies Allergy/AdvReac Type Severity Reaction Status Date / Time No Known Allergies Allergy Verified 11/25/19 00:48 Past Med/Surg History Problem List (Updated 03/30/24 @ 14:07 by Maggie Corey PA-C) Wound of right lower extremity PVD (peripheral vascular disease) Vertigo Stroke Vertebral artery dissection (Acute) Elevated TSH (Chronic) Hypertension (Chronic) Carotid artery disease (Chronic) Dyslipidemia (Chronic) Concussion (Acute) Medical History (Updated 03/30/24 @ 14:07 by Maggie Corey PA-C) No significant active problems No significant medical problems No significant past medical history No significant family history Surgical History No significant past surgical history Family History (Updated 03/30/24 @ 14:01 by Maggie Corey PA-C) Mother Coronary heart disease Social History Smoking Status: Former smoker Do You Dip or Chew Tobacco: No; Hx Alcohol Use: Yes Alcohol type: beer Hx Substance Use: No Preferred Language: Italian Communication Ability: Effective Bag Inspector Required: No Beliefs That Will Affect Care: None Current Living Situation: Spouse and Family Feels Safe at Home: Yes Assistive Devices: None Review of Systems 2 Review of Systems: All systems reviewed & are unremarkable except as noted in HPI & below Physical Exam 2 Physical Exam: Constitutional: WD/WN, vitals as above, NAD, sitting up in bed, pleasant, conversing easily Head: Normocephalic, Atraumatic Eyes: PERRL, conjunctivae normal, anicteric sclerae ENMT: external ear and nose normal, oropharynx normal Neck: trachea midline, no thyromegaly normal visual inspection Respiratory: normal respiratory effort, lungs clear to auscultation, no wheeze, rales, rhonchi. Normal insp/exp effort, no accessory muscle use Cardiovascular: RRR, no murmur, Vessels: no JVD or carotid bruit Chest: normal inspection of chest Abdomen: normal bowel sounds, soft, nontender, no hepatosplenomegaly Musculoskeletal: no cyanosis or clubbing, extremities motor strength 5/5 Skin: no rashes, warm and dry normal turgor Neurologic: no face palsy, no dysarthria CN's II-XI intact bilaterally and moves all extremities Psychiatric: A+Ox3, euthymic affect : deferred Ext: B/l lower ext venous stasis with RLE venous stasis ulcerations, +2 DP pulse Results & Data Results & Data Vital Signs (Past 12 Hours) Vital Signs Temp Pulse Pulse Resp BP BP Pulse Ox 03/30/24 12:31 66 03/30/24 12:30 66 18 148/104 H 96 03/30/24 10:24 36.6 C 80 20 157/97 H 96 O2 Del Method 03/30/24 12:31 03/30/24 12:30 Room Air 03/30/24 10:24 Room Air Laboratory Results I have independently reviewed and interpreted patient's admitting labs including CBC, CMP Diagnostic Findings Tibia/Fibula X-Ray 03/30/24 10:28 XR tibia fibula RT 2V HISTORY: 59 years-old Male Lower leg trauma soft tissue injury of the right lower leg COMPARISON: None TECHNIQUE: 2 views of the right tibia and fibula FINDINGS: Moderate diffuse soft tissue prominence with probable superficial venous varicosities. Mild osteoarthritis of the ankle and knee. Degenerative spurring of the calcaneus. No acute fracture, dislocation, osseous erosion or opaque foreign body. IMPRESSION: Soft tissue swelling without acute osseous abnormality. ACT 112: Negative or not required by law. The above report was generated using voice recognition software. It may contain grammatical, syntax or spelling errors. Electronically signed by: Raphael Perales M.D. 03/30/2024 11:22 AM Medications Administered Medication List Vancomycin HCl 1,750 mg/ (Sodium Chloride) 535 mls @ 200 mls/hr IV NOW ONE Stop: 03/30/24 15:17 Last Admin: 03/30/24 13:24 Dose: 200 mls/hr Documented By: AM Discontinued Medications Ceftriaxone Sodium (Rocephin) 2,000 mg in 50 mls @ 100 mls/hr IV NOW STA Stop: 03/30/24 13:06 Last Infusion: 03/30/24 13:24 Dose: Infused Documented By: Admin: 03/30/24 12:50 Dose: 100 mls/hr Documented By: CLARA COVID-19 Results Results COVID-19 Adm Lab Results: 2 RBC 3.88 M/uL (4.70-6.10) L 03/30/24 WBC 4.77 K/ul (4.8-10.8) L 03/30/24 Hgb 12.2 g/dl (14.0-18.0) L 03/30/24 Hct 36.4 % (42.0-52.0) L 03/30/24 Plt Count 354 K/uL (130-400) 03/30/24 Neutrophils (%) (Auto) 66.5 % 03/30/24 Lymphocytes (%) (Auto) 18.4 % 03/30/24 Monocytes # (Auto) 0.39 K/uL (0.11-0.59) 03/30/24 Eosinophils # (Auto) 0.25 K/uL (0.00-0.50) 03/30/24 Immature Granulocyte % (Auto) 0.2 % 03/30/24 Neutrophils # (Auto) 3.17 K/uL (1.40-6.50) 03/30/24 Lymphocytes # (Auto) 0.88 K/uL (1.20-3.40) L 03/30/24 Monocytes # (Auto) 0.39 K/uL (0.11-0.59) 03/30/24 Eosinophils # (Auto) 0.25 K/uL (0.00-0.50) 03/30/24 Basophils # (Auto) 0.07 K/uL (0.00-0.20) 03/30/24 Immature Granulocyte # (Auto) 0.01 K/uL (0.01-0.20) 4 Na 140 mmol/L (136-145) 03/30/24 K 3.9 mmol/L (3.5-5.1) 03/30/24 Cl 106 mmol/L (98-107) 03/30/24 CO2 27 mmol/L (21-32) 03/30/24 Anion Gap 7 (3-11) 03/30/24 BUN 12 mg/dl (6-23) 03/30/24 Creatinine 0.81 mg/dl (0.6-1.4) 03/30/24 BUN/Creatinine Ratio 14.8 (10-20) 03/30/24 Glucose Level 103 mg/dl (70-99(Fasting)) H 03/30/24 Ca 8.9 mg/dl (8.6-10.3) 03/30/24 Total Bilirubin 1.1 mg/dl (0.2-1.0) H 03/30/24 AST/SGOT 11 U/L (13-39) L 03/30/24 ALT/SGPT 8 U/L (7-52) 03/30/24 Alkaline Phosphatase 43 U/L (34-104) 03/30/24 Total Protein 6.9 gm/dl (6.0-8.3) 03/30/24 Albumin 3.8 gm/dl (3.4-5.0) 03/30/24 Globulin 3.1 gm/dl (2.5-4.0) 03/30/24 Albumin/Globulin Ratio 1.2 (0.9-2) 03/30/24 Code Status & VTE Plan Code Status FULL CODE VTE Prophylaxis Plan VTE Prophylaxis will be ordered: Yes
[2024-03-30] MEDS: KETOROLAC 30 MG/ML VIAL IV ONE (15:13)
--- NOTE | 2024-03-30 15:21 | Ultrasound Report ---
BILATERAL LOWER EXTREMITY VENOUS DOPPLER HISTORY: Acute pain and swelling of the lower legs venous stasis COMPARISON STUDY: None. FINDINGS: Superficial venous varicosities are noted linear areas of stranding which appears chronic. No acute occlusive superficial venous thrombosis identified. Inguinal chain lymph nodes measures up t o 5 x 4 x 3 cm on the right. There is normal compressibility, flow, and augmentation within the bilateral lower extremity deep lillian ous systems. IMPRESSION: 1. No DVT within the right or left lower extremity. 2. Nonspecific inguinal lymphadenopathy. ACT 112: Negative or not required by law. Electronically signed by: Raphael Perales M.D. 03/30/2024 3:19 PM
--- NOTE | 2024-03-30 15:24 | Ultrasound Report ---
RIGHT LOWER EXTREMITY ARTERIAL DOPPLER ULTRASOUND CLINICAL HISTORY: Right lower extremity wounds. COMPARISON STUDY: No previous studies for comparison. TECHNIQUE: Color and duplex Doppler sonography of the arterial system of the right lower extremity wa s performed. FINDINGS: Mild atherosclerotic plaque within the right lower extremity was noted. No elevated velocit ies were identified. Vessels were patent. There is triphasic flow within the right common femoral, pr ofunda, superficial femoral, popliteal, posterior tibial, peroneal and anterior tibial arteries. Ther e was biphasic flow within the right dorsalis pedis. IMPRESSION: 1. No evidence for a hemodynamically significant stenosis within the right lower extremity. Patent ve ssels. 2. Mild atherosclerotic plaque within the right lower extremity. ACT 112: Negative or not required by law. Electronically signed by: Ventura Washington M.D. 03/30/2024 3:23 PM
[2024-03-30] MEDS: lisinopril 5 MG TAB PO ONE (16:22)
[2024-03-30] MEDS ORDERED: FAMOTIDINE 20 MG TAB PO PRN (16:37)
[2024-03-30] MEDS ORDERED: ONDANSETRON INJ 2 MG/ML 2 ML VIAL IV PRN (16:37)
[2024-03-30] MEDS: oxyCODONE HCL IR 5 MG TAB (IMMEDIATE RELEASE) PO PRN (17:39)
[2024-03-30] MEDS: ACETAMINOPHEN 325 MG TAB PO PRN (19:43)
[2024-03-30] MEDS: ENOXAPARIN INJ 40 MG/0.4 ML SYR SQ SCH (20:56)
[2024-03-30] MEDS: VANCOMYCIN HCL 1,250 MG in SODIUM CHLORIDE 0.9% 250 ML IV SCH (20:56)
[2024-03-30] MEDS: ATORVASTATIN 40 MG TAB PO SCH (20:56)
[2024-03-30] MEDS ORDERED: MELATONIN 3 MG TAB PO PRN (21:00)
[2024-03-30] MEDS: oxyCODONE HCL IR 5 MG TAB (IMMEDIATE RELEASE) PO STA (21:43)
[2024-03-31] MEDS: oxyCODONE HCL IR 5 MG TAB (IMMEDIATE RELEASE) PO PRN (05:40)
[2024-03-31] MEDS: MoRPHine SULFATE 4 MG/ML 1 ML CARP\\VIAL IV PRN (07:44)
[2024-03-31] MEDS: ASPIRIN 81 MG ECTAB PO SCH (08:14)
[2024-03-31] MEDS: ADVANCED PROBIOTIC 625 MG CAPSULE PO SCH (08:15)
[2024-03-31] MEDS: lisinopril 5 MG TAB PO SCH (08:48)
[2024-03-31 09:17] LABS: Basophils # (auto) 0.07 K/uL (0.00-0.20); Basophils % (auto) 1.2 %; Eosinophils % (auto) 7.1 %; Hematocrit (blood only) 36.1 % (42.0-52.0); Hemoglobin 12.1 g/dl (14.0-18.0); Immature Granulocytes # (auto) 0.01 K/uL (0.01-0.20); Immature Granulocytes % (auto) 0.2 %; Lymphocytes # (auto) 0.71 K/uL (1.20-3.40); Lymphocytes % (auto) 12.6 %; Mean Corpuscular Hemoglobin 31.8 pg (25.0-34.0); Mean Corpuscular Hgb Conc 33.5 g/dL (32.0-36.0); Mean Platelet Volume 9.6 fL (9.4-12.4); Monocytes # (auto) 0.32 K/uL (0.11-0.59); Monocytes % (auto) 5.7 %; Neutrophils # (auto) 4.11 K/uL (1.40-6.50); Neutrophils % (auto) 73.2 %; Platelet Count 296 K/uL (130-400); RDW Coefficient of Variation 12.2 % (11.5-14.5); RDW Standard Deviation 42.2 fL (36.4-46.3); White Blood Count 5.62 K/ul (4.8-10.8)
[2024-03-31 09:32] LABS: BUN Creatinine Ratio 14.5 (10-20); Calcium 8.7 mg/dl (8.6-10.3); Chol HDL Ratio 4.9 (0-5); Magnesium 2.1 mg/dl (1.7-2.4); Potassium 3.9 mmol/L (3.5-5.1)
[2024-03-31 09:48] LABS: Estimated Average Glucose 94 mg/dl; Hemoglobin A1C 4.9 % (4.5-5.6)
--- NOTE | 2024-03-31 09:57 | Pharmacy Report ---
Pharmacy PK ABX Note - Date of Service March 31, 2024 - Assessment and Plan Assessment 59 year old M receiving ceftriaxone and vancomycin for treatment of worsening right lower extremity wounds. Patient has had chronic venous ulcers for several years which have worsened over the past few weeks. Patient has been dressing wounds himself with a topical aspercreme and covering with gauze/toilet paper. Foot culture was obtained 03/30 and is pending. Day # 2 of antimicrobial therapy. Plan Vancomycin * Loading dose: 1750 mg IV x 1 * Maintenance dose: 1250 mg IV every 12 hours * Regimen vancomycin will be obtained if continued beyond 48 hours. Pharmacy will continue to follow and will adjust dose/frequency as necessary. Thank you. Pharmacy has transitioned to AUC monitoring for vancomycin. AUC/ALFRED is the preferred PK/PD target and is associated with decreased risk of nephrotoxicity compared to traditional trough targets.
[2024-03-31] MEDS: cefTRIAXone SODIUM 2,000 MG/50 ML BAG IV SCH (11:33)
[2024-03-31] MEDS: diphenhydrAMINE Capsule 25 MG CAP PO PRN (12:13)
--- NOTE | 2024-03-31 14:17 | Hospitalist Progress Note ---
Date of Service March 31, 2024 Assessment & Plan (1) PVD (peripheral vascular disease): (2) Wound of right lower extremity: (3) Hypertension: Plan 59-year-old male who has significant past medical history of hypertension, hypertriglyceridemia, history of vertebral artery dissection, left carotid artery plaque who presents to ED at the referral of PCP due to chronic right lower extremity wounds. Pt has had right lower extremity wounds for 5 years that he has seen outpt providers for on and off. He mostly has been doctoring himself and using OTC Aspercreme. He is being managed for the following: PVD Right lower extremity vascular wounds Admitting imagings: X-ray tibia-fibula right: Soft tissue swelling without acute Osseous abnormality. RLE arterial Doppler: No evidence of hemodynamically significant stenosis. Mild atherosclerotic plaques within RLE noted. BLE venous Doppler: No DVT Admitting labs: A1c of 4.9, LDL of 96. Patient was started on empiric antibiotic for concern of infection. follow admitting culture. Wound care consult, continue with wound care. c/w pain mx. HTN: hx of, was prescribed lisinopril 5mg daily , Restarted here. Monitor. Hypertriglyceridemia: previously on statin, but hasn't taken for a long time, Restarted. Monitor. Medication noncompliance: Counseled importance of medication compliance. Hx of vertebral artery dissection: added ASA, Statin back on, pt needs consistent education on being compliant with medications DVT ppx: SQ Lovenox FULL CODE PCP: Chapis De Paz Dispo: admit to medical, wound care. Admission and Anticipated Discharge Date Admission Date: March 30, 2024 Subjective Patient was seen and examined at bedside. Patient was lying in bed, on room air, reports having pain and itching right lower extremity. Patient reports eating okay, denies fever. Physical Exam 2 Physical Exam: GENERAL: Alert and oriented x3. NAD, on RA. HEENT: No pallor, no icterus. Pupils equal, round and reactive to light. Oral mucosa moist. NECK: No JVD, no neck masses. HEART: S1 and S2 heard. Regular rate and rhythm. No murmur, no gallop. RESPIRATORY SYSTEM: Normal AP diameter. No accessory muscle use. No wheezing, no crackles. ABDOMEN: Soft, bowel sounds present, nontender, no distention. CENTRAL NERVOUS SYSTEM: No facial droop. Speech is clear. Obeys simple commands. Moves extremities. EXTREMITIES: B/l lower ext venous stasis with RLE venous stasis ulcerations, +2 DP pulse Admitting RLE picture as below: Results & Data Results & Data Vital Signs (Past 12 Hours) Vital Signs Temp Pulse Resp BP Pulse Ox O2 Del Method 03/31/24 07:43 36.7 C 68 16 158/74 H 97 Room Air
--- OUTSIDE RECORDS SUMMARY | 2024-03-31 16:14 | External Medical Summary | Summary of Care ---
Author Name Unknown Organization [facility] Address [address] [place] [address] Phone [phone] Care Team Providers Care Manager Forensic Name Role Phone Chapis Blas MD Primary Care Prov ider Reason for Visit * Reason Onset Date Comments Other 03/29/2024 Encounter Details Date Type Department Care Team (Late st Contact Info) Description 03/29/[address] [place] [address] Lai Ramey MD [address] [place] [address] [place] MANUEL Luna [id number] Other Allergies No known active allergiesdocumented as of this encounter (statuses as of 03/29/2024) Medications Atorvastatin Calcium 40 MG Oral Tablet (Lipitor)Indica tions:Vertebral artery dissection (HCC),Hypertrig lyceridemia take one pill by mouth at bedtime 90 Tablet 1 2 Active Additional Information Patient not taking.Reported on 03/29/2024 Naproxen 500 MG Oral Tablet (Naprosyn)Indic ations:Venous stasis ulcer of right ankle limited to breakdown of skin with varicose veins (HCC),PVD (peripheral vascular disease) (HCC) Take by mouth 1 Tablet 2 times a day with morning and evening meals . 60 Tablet 1 2 Active Additional Information Patient not taking.Reported on 03/29/2024 Lisinopril 5 MG Oral Tablet (Prinivil)Indic ations:Hyperten andrew goal BP (blood pressure) < 140/90 TAKE ONE TABLET BY MOUTH EVERY DAY 90 Tablet 3 Active Additional Information Patient not taking.Reported on 03/29/2024 Gabapentin 300 MG Oral Capsule (Neurontin)Jenni cations:Chronic bilateral low back pain without sciatica,Right foot pain Take 1 Capsule by mouth at bedtime. 90 Capsule 1 4 Active DULoxetine HCl 30 MG Oral Capsule Delayed Release Particles (Cymbalta)Indic ations:Chronic bilateral low back pain without sciatica,Right foot pain Take 1 Capsule by mouth in the morning. Do not cut, crush or chew. 30 Capsule 5 4 Active documented as of this encounter (statuses as of 03/29/2024) Active Problems Problem Noted Date Diagnosed Date Vertebral artery dissection 10/14/2018 Hypertension goal BP (blood pressure) < 140/90 0 10/14/2018 Hypertriglyceridemia 10/14/2018 Carotid artery plaque, left 10/14/2018 documented as of this encounter (statuses as of 03/29/2024) Resolved Problems Problem Noted Date Diagnosed Date Resolved Date Gastroesophageal reflux dise ase without esophagitis 02/15/2020 06/27/2021 Venous stasis ulcer of right ankle limited to breakdown of skin with varicose veins 02/15/2020 documented as of this encounter (statuses as of 03/29/2024) Immunizations Name Administration Dates Next Due Seasonal Influenza, PF, 6 M & above, IM , (FluLaval or Fluzone) 02/15/2020 TD, Preservative Free 09/26/2013 TDAP (age 10 and older)(Boostrix) 02/15/2020 documented as of this encounter Social History Tobacco Use Types Packs/Day Years Used Date Smoking Tobacco: Former Smokeless Tobacco: Former Quit: 1999 Alcohol Use Standard Drinks/Week Comments Yes 0 (1 standard drink = 0.6 oz pur e alcohol) AUDIT-C Answer Date Recorded Frequency of Alcohol Consumption 2-4 times a fri01/14/2020 Average Number of Drinks Not on file 020 Frequency of Binge Drinking Never 12/27 PHQ-2 Answer Date Recorded PHQ-2 Score 0 01/14/2020 Hunger Vital Sign Answer Date Recorded Worried About Running Out of Food in the Last Ye ar Never true 01/14/2020 Ran Out of Food in the Last Year Never true 01/14/2020 Sex and Gender Information Value Date Recorded Sex Assigned at Not on file Legal Sex Male 5:28 AM EST Gender Identity Not on file Sexual Orientation Not on file documented as of this encounter Miscellaneous Notes * Telephone Encounter - Yvonne Maciel OSA - 03/29/2024 12:00 PM EST I told this patient as per Dr Bower to go to the ER. Patient understood but said he could not todayand I advised him to go [facility]. Patient stated that he will. documented in this encounter Plan of Treatment Health Maintenance Due Date Last Done Comments HIV Screening 02/19/1979 Cologuard 02/19/2009 Colonoscopy 02/19/2009 Colorectal Cancer Screening 02/19/2009 Fecal Occult Blood Test 02/19/2009 Sigmoidoscopy 02/19/2009 Zoster Vaccines (1 of 2) 02/19/2014 Depression Screening 01/13/2021 01/14/2020 GFR 12/05/2022 12/05/2021, 03/0 05/2021, 02/17/2020, Additional history exists COVID-19 Vaccine ( - season) 2023 Influenza Vaccine (FLU shot) (#1) 2023 02/15/2020 Albumin/Creatinine Ratio 06/27/2024 06/27/2021 Diabetes Screening 12/05/2024 12/05/2021, 0 06/27/2021, 02/17/2020, Additional history exists DTap/Tdap Vaccines (2 - Td or Tdap) 02/14/2030 02/15/2020, 09/26/2013 HPV (Gardasil) Vaccine Aged Out No lo nger eligible based on patient's age to complete this topic Hepatitis B Vaccine Aged Out No longe r eligible based on patient's age to complete this topic MENINGOCOCCAL (MENACTRA/MENVEO) Aged Out No longer eligible based on patient's age to complete this topic Pneumococcal Vaccine: Pediatrics (0 to 5 Years) and At-Risk Patients (6 to 64 Years) Aged Out No longer eligible based on patient's age to complete this topic documented as of this encounter Medical Devices Not on filedocumented as of this encounter Care Teams Manager Forensic Relationship Specialty Start Date End Date Chapis Blas MD [address] [place] [address] [place] [place] [phone] PCP - General Family Medicine 06/22/21 documented as of this encounter
--- OUTSIDE RECORDS SUMMARY | 2024-03-31 16:14 | External Medical Summary | Summary of Care ---
Author Name Unknown Organization [facility] Address [address] [place] [address] Phone [phone] Care Team Providers Care Dowel Inspector Name Role Phone Chapis Blas MD Primary Care Prov ider Reason for Visit * Reason Onset Date Comments MyCode Consent 03/29/2024 Encounter Details Date Type Department Care Team (Late st Contact Info) Description 03/29/2024 Orders Only Outcomes Research Department [address] [place] [address] Miriam Andujar CHRA MyCode Research Other*[id number]* Allergies No known active allergiesdocumented as of [...] Additional Information Patient not taking.Reported on 03/29/2024 documented as of this encounter (statuses as of 03/29/2024) Active Problems Problem Noted Date Diagnosed Date Venous stasis ulcer of right ankle limited to breakdown of skin with varicose veins 02/15/2020 Vertebral artery dissection 10/14/2018 Hypertension goal BP (blood pressure) < 140/90 0 10/14/2018 Hypertriglyceridemia 10/14/2018 Carotid artery plaque, left 10/14/2018 documented as of this encounter (statuses as of 03/29/2024) Resolved Problems Problem Noted Date Diagnosed Date Resolved Date Gastroesophageal reflux dise ase without esophagitis 02/15/2020 06/27/2021 documented as of this encounter (statuses as of 03/29/2024) Immunizations Name Administration Dates Next Due Seasonal Influenza, PF, 6 M & above, IM , (FluLaval or Fluzone) 02/15/2020 TD, Preservative Free 09/26/2013 TDAP (age 10 and older)(Boostrix) 02/15/2020 documented as of this encounter Social History Tobacco Use Types Packs/Day Years Used Date Smoking Tobacco: Former Smokeless Tobacco: Former Quit: 2000 Alcohol Use Standard Drinks/Week Comments Yes 0 [...] on file documented as of this encounter Progress Notes * Miriam Andujar CHRA - 03/29/2024 10:47 AM EST Gemmyoode Consent Documentation Prashant Hwaley provided consent/authorization to participate in the [employer]. documented in this encounter Plan of Treatment Scheduled Orders Name Type Priority Associated Diagnoses Orde r Schedule MYCODE INITIAL ADULT Lab Routine MyCode Research Other*[id number] Expected: 03/29/2024 (Approximate), Expires: 04/18/2025 Health Maintenance Due Date Last Done Comments HIV Screening 02/19/1979 Cologuard 02/19/2009 Colonoscopy 02/19/2009 Colorectal Cancer Screening 02/19/2009 Fecal Occult Blood Test 02/19/2009 Sigmoidoscopy 02/19/2009 Zoster Vaccines (1 of 2) 02/19/2014 Depression Screening 01/13/2021 01/14/2020 GFR 12/05/2022 12/05/2021, 03/0 05/2021, 02/17/2020, Additional history exists COVID-19 Vaccine ( season) 2023 Influenza Vaccine (FLU shot) (#1) 2023 02/15/2020 Albumin/Creatinine Ratio 06/27/2024 06/27/2021 DTap/Tdap Vaccines (2 - Td or Tdap) [...] Not on filedocumented as of this encounter Visit Diagnoses Diagnosis MyCode Research Other*[id number]- Primary documented in this encounter Care Teams Dowel Inspector Relationship Specialty Start Date End Date Chapis Blas MD [address] [place] [address] [place]UEL [place] [phone] PCP - General Family Medicine 06/22/21 documented as of this encounter
--- OUTSIDE RECORDS SUMMARY | 2024-03-31 16:14 | External Medical Summary | Summary of Care ---
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 Phone Chapis Blas MD Primary Care Prov ider Reason for Referral * Evaluate & Treat - Unlimited Visits (Within 30 days (routine)) - Pending Review Specialty Diagnoses / Procedures Referred By Contkayli t Referred To Contact Wound Care Diagnoses Ulcer of right foot, unspecified ulcer stage (HCC) Lai Ramey MD [address] [place] [address] [place] [id number] Phone: tel: fax: Referral ID Status Reason Start Date Expiration Date Visits Requested Visits Authorized [id number] Pending Review Specialty Services Required 03/29/[phone] Question Answer Referral Priority Within 30 days (routine) Where should this appointment be scheduled? External Where is the wound? Below the knee Comments Assess for: Present over 30 days Reason for Visit * Reason Comments Re-Check Encounter Details Date Type Department Care Team (Late st Contact Info) Description 03/29/2024 10:20 AM EST Office Visit Family Medicine [address] [place] [phone] Lai Ramey MD [address] [place] [address] [place] [id number] Ulcer of right foot, unspecified ulcer stage (HCC)*; Chronic bilateral low back pain without sciatica; Right foot pain Allergies No known active allergiesdocumented as of [...] on file documented as of this encounter Last Filed Vital Signs Vital Sign Reading Time Taken Comments Blood Pressure 142/90 03/29/2024 10:47 AM EST Pulse 97 03/29/2024 10:47 AM EST Temperature 36.2 C (97.1 F) 03/29/2024 1 0:47 AM EST Respiratory Rate - - Oxygen Saturation 95% 03/29/2024 10: 47 AM EST Inhaled Oxygen Concentration - - Weight 93.4 kg (205 lb 12.8 oz) 024 10:47 AM EST Height 179.1 cm (5' 10.5") 03/29/2024 1 0:47 AM EST Body Mass Index 29.11 03/29/2024 10:47 AM EST documented in this encounter Progress Notes * Lai Ramey MD - 03/29/2024 11:13 AM EST Subjective: HPI: Prashant Hawley is a 59 year old male with hx of HTN seen for First time seeing the pt for an acute visit Pt was 8 mins late to the appointment R foot ulcers - had it for 5 years - used to go wound clinic - recently pt is having increase in size - denied any fever - lot of drainage - having pain in his foot and lower back as well Pt is not taking his meds Last saw a crumb packer 4 months ago Would like meds for pain and thinking about applying for Social security Patient Active Problem List Diagnosis Vertebral artery dissection (HCC) Hypertension goal BP (blood pressure) < 140/90 Hypertriglyceridemia Carotid artery plaque, left Venous stasis ulcer of right ankle limited to breakdown of skin with varicose veins (HCC) Current Outpatient Medications Medication Sig Dispense Refill Gabapentin 300 MG Oral Capsule (Neurontin) Take 1 Capsule by mouth at bedtime. 90 Capsule 1 DULoxetine HCl 30 MG Oral Capsule Delayed Release Particles (Cymbalta) Take 1 Capsule by mouth in the morning. Do not cut, crush or chew. 30 Capsule 5 Atorvastatin Calcium 40 MG Oral Tablet (Lipitor) take one pill by mouth at bedtime (Patient not taking: Reported on 03/29/2024) 90 Tablet 1 Naproxen 500 MG Oral Tablet (Naprosyn) Take by mouth 1 Tablet 2 times a day with morning and evening meals . (Patient not taking: Reported on 03/29/2024) 60 Tablet 1 Lisinopril 5 MG Oral Tablet (Prinivil) TAKE ONE TABLET BY MOUTH EVERY DAY (Patient not taking: Reported on 03/29/2024) 90 Tablet 0 No current facility-administered medications for this visit. Past Medical History: Diagnosis Date Atherosclerosis of left carotid artery 10/14/2018 Coma ([facility]) 1975 Encounter for hepatitis C screening test for low risk patient 06/27/2021 negative Encounter for hepatitis C screening test for low risk patient 06/27/2021 negative GERD without esophagitis 02/15/2020 Hypertension goal BP (blood pressure) < 140/90 10/14/2018 Hypertriglyceridemia TBI (traumatic brain injury) 1975 Varicose veins of right lower extremity with ulcer of ankle limited to breakdown of skin ([facility]) 02/15/2020 Vertebral artery dissection ([facility]) 10/14/2018 Past Surgical History: Procedure Laterality Date LAPAROSCOPY; REPAIR INITIAL INGUINAL HERNIA Review of patient's allergies indicates: No Known Allergies Family History Problem Relation Name Age of Onset Heart attack Mother Hypertension Mother Diabetes Father 72 Heart disease Father Coronary Artery disease Father Social History Tobacco Use Smoking status: Former Smokeless tobacco: Former Quit date: 1999 Substance Use Topics Alcohol use: Yes Vaping/E-Cigarette Use Vaping/E-Cigarette Substances Vaping/E-Cigarette Devices ROS: -Per HPI OBJECTIVE: BP 142/90 | Pulse 97 | Temp 97.1 F (36.2 C) | Ht 5' 10.5" (1.791 m) | Wt 205 lb 12.8 oz (93.4 kg) | SpO2 95% | BMI 29.11 kg/m | BSA 2.16 m PHYSICAL EXAM: Vitals are reviewed MSK: multiple ulcers on the R foot and distal leg - unstageable - purulent discharge and malodorus ASSESSMENT/PLAN: Explained to the pt that it is likely infected and need image and stat debridement - pt refused to go to the ER right away but willing to go to the ER later - explained the importance of acute care Will order lab and will try cymbalta and gabapentin for pain Changed the pt's bandage Ulcer of right foot, unspecified ulcer stage (HCC) (Primary) - CBC WITH WBC DIFFERENTIAL - BASIC METABOLIC PANEL - HEMOGLOBIN A1C - LIPID PANEL WITHOUT DIRECT LDL - WOUND CARE REFERRAL OP Chronic bilateral low back pain without sciatica - Gabapentin 300 MG Oral Capsule (Neurontin); Take 1 Capsule by mouth at bedtime. - DULoxetine HCl 30 MG Oral Capsule Delayed Release Particles (Cymbalta); Take 1 Capsule by mouth in the morning. Do not cut, crush or chew. Right foot pain - Gabapentin 300 MG Oral Capsule (Neurontin); Take 1 Capsule by mouth at bedtime. - DULoxetine HCl 30 MG Oral Capsule Delayed Release Particles (Cymbalta); Take 1 Capsule by mouth in the morning. Do not cut, crush or chew. I spent a total of 40-54 minutes (exact time 44 mins) on the date of service in preparation, delivery, and documentation of the care provided to Prashant Hawley excluding any time spent in the performance of separately billed services or time spent by another provider/QHP. Lai Ramey MD [place] [id number] documented in this encounter Nursing Notes * Stefany Banerjee CMA - 03/29/2024 10:45 AM EST He is here for the pain in his legs. He has venous stasis ulcers still. Last time he was seen was 2years ago. He has been taking care them himself. He takes tylenol dual pain relief. documented in this encounter Plan of Treatment Scheduled Orders Name Type Priority Associated Diagnoses Orde r Schedule CBC WITH WBC DIFFERENTIAL Lab Routine Ulcer of right foot, unspecified ulcer stage (HCC) Ordered: 03/29/2024 BASIC METABOLIC PANEL Lab Routine Ulcer of right foot, unspecified ulcer stage (HCC) Ordered: 03/29/2024 HEMOGLOBIN A1C Lab Routine Ulcer of right foot, unspecified ulcer stage (HCC) Ordered: 03/29/2024 LIPID PANEL WITHOUT DIRECT LDL Lab Routine Ulcer of right foot, unspecified ulcer stage (HCC) Ordered: 03/29/2024 Scheduled Referrals Name Type Priority Associated Diagnoses Orde r Schedule WOUND CARE REFERRAL OP Referral Within 30 days (routine) Ulcer of right foot, unspecified ulcer stage (HCC) Ordered: 03/29/2024 Health Maintenance Due Date Last Done Comments HIV Screening 02/19/1979 Cologuard 02/19/2009 Colonoscopy 02/19/2009 Colorectal Cancer Screening 02/19/2009 Fecal Occult Blood Test 02/19/2009 Sigmoidoscopy 02/19/2009 Zoster Vaccines (1 of 2) 02/19/2014 Depression Screening 01/13/2021 01/14/2020 GFR 12/05/2022 12/05/2021, 03/0 05/2021, 02/17/2020, Additional history exists COVID-19 Vaccine (1 - season) 2023 Influenza Vaccine (FLU shot) [...] as of this encounter Visit Diagnoses Diagnosis Ulcer of right foot, unspecified ulcer stage (HCC)- Primary Chronic bilateral low back pain without sciatica Right foot pain Pain in limb documented in this encounter 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
[2024-04-01 07:32] VITALS: RESP 16
[2024-04-01 07:50] LABS: Hematocrit (blood only) 36.7 % (42.0-52.0); Mean Corpuscular Hemoglobin 30.8 pg (25.0-34.0); Mean Corpuscular Hgb Conc 32.7 g/dL (32.0-36.0); Mean Corpuscular Volume 94.3 fL (80.0-100.0); Platelet Count 292 K/uL (130-400); RDW Coefficient of Variation 12.2 % (11.5-14.5); RDW Standard Deviation 42.5 fL (36.4-46.3); Red Blood Count 3.89 M/uL (4.70-6.10); White Blood Count 5.21 K/ul (4.8-10.8)
[2024-04-01 08:08] LABS: BUN Creatinine Ratio 14.1 (10-20); Calcium 8.4 mg/dl (8.6-10.3); Creatinine Clr Calc Pharmacy 93.7 ml/min; Magnesium 2.2 mg/dl (1.7-2.4); Potassium 4.2 mmol/L (3.5-5.1)
--- NOTE | 2024-04-01 14:51 | Hospitalist Progress Note ---
Date of Service April 01, 2024 Assessment & Plan (1) PVD (peripheral vascular disease): (2) Wound of right lower extremity: (3) Hypertension: Plan 59-year-old male who has significant past medical history of hypertension, hypertriglyceridemia, history of vertebral artery dissection, left carotid artery plaque who presents to ED at the referral of PCP due to chronic right lower extremity wounds. Pt has had right lower extremity wounds for 5 years that he has seen outpt providers for on and off. He mostly has been doctoring himself and using OTC Aspercreme. He is being managed for the following: PVD Right lower extremity vascular wounds Admitting imagings: X-ray tibia-fibula right: Soft tissue swelling without acute Osseous abnormality. RLE arterial Doppler: No evidence of hemodynamically significant stenosis. Mild atherosclerotic plaques within RLE noted. BLE venous Doppler: No DVT Admitting labs: A1c of 4.9, LDL of 96. Patient was started on empiric antibiotic for concern of infection. Admitting Cx w/ contaminant (d/w ID 04/01). Doubtful it is truly cellulitis, can transition to keflex to complete 7 days course. Dc empiric vanc and rocephin. Monitor. Wound care consult, continue with wound care. c/w pain mx. R upper Back sebaceous cyst: not infected, non painful, has been there for years per pt. monitor. HTN: hx of, was prescribed lisinopril 5mg daily , Restarted here. Monitor. Hypertriglyceridemia: previously on statin, but hasn't taken for a long time, Restarted. Monitor. Medication noncompliance: Counseled importance of medication compliance. Hx of vertebral artery dissection: added ASA, Statin back on, pt needs consistent education on being compliant with medications DVT ppx: SQ Lovenox FULL CODE PCP: Chapis De Paz Dispo: admit to medical, wound care. Admission and Anticipated Discharge Date Admission Date: March 30, 2024 Subjective Patient was seen and examined at bedside. Patient was lying in bed, on room air, reports improving pain and itching x right lower extremity. Patient reports eating okay, denies fever. Physical Exam 2 Physical Exam: GENERAL: Alert and oriented x3. NAD, on RA. HEENT: No pallor, no icterus. Pupils equal, round and reactive to light. Oral mucosa moist. NECK: No JVD, no neck masses. HEART: S1 and S2 heard. Regular rate and rhythm. No murmur, no gallop. RESPIRATORY SYSTEM: Normal AP diameter. No accessory muscle use. No wheezing, no crackles. ABDOMEN: Soft, bowel sounds present, nontender, no distention. CENTRAL NERVOUS SYSTEM: No facial droop. Speech is clear. Obeys simple commands. Moves extremities. EXTREMITIES: B/l lower ext venous stasis with RLE venous stasis ulcerations, +2 DP pulse Admitting RLE picture as below: Results & Data Results & Data Vital Signs (Past 12 Hours) Vital Signs Temp Pulse Resp BP Pulse Ox O2 Del Method 04/01/24 07:32 36.7 C 61 16 136/70 95 Room Air
[2024-04-01] MEDS: cephALEXin 500 MG CAP PO SCH (17:01)
[2024-04-02 07:41] LABS: Hematocrit (blood only) 38.1 % (42.0-52.0); Hemoglobin 13.3 g/dl (14.0-18.0); Mean Corpuscular Hemoglobin 32.8 pg (25.0-34.0); Mean Corpuscular Hgb Conc 34.9 g/dL (32.0-36.0); Mean Corpuscular Volume 93.8 fL (80.0-100.0); Mean Platelet Volume 10.2 fL (9.4-12.4); Platelet Count 319 K/uL (130-400); RDW Coefficient of Variation 12.1 % (11.5-14.5); RDW Standard Deviation 41.6 fL (36.4-46.3); Red Blood Count 4.06 M/uL (4.70-6.10); White Blood Count 6.14 K/ul (4.8-10.8)
[2024-04-02 09:31] LABS: BUN Creatinine Ratio 12.5 (10-20); Magnesium 2.3 mg/dl (1.7-2.4); Phosphorus 3.3 mg/dl (2.5-4.9); Potassium 4.4 mmol/L (3.5-5.1)
--- NOTE | 2024-04-02 15:40 | Hospitalist Progress Note ---
Date of Service April 02, 2024 Assessment & Plan (1) PVD (peripheral vascular disease): (2) Wound of right lower extremity: (3) Hypertension: Plan 59-year-old male who has significant past medical history of hypertension, hypertriglyceridemia, history of vertebral artery dissection, left carotid artery plaque who presents to ED at the referral of PCP due to chronic right lower extremity wounds. Pt has had right lower extremity wounds for 5 years that he has seen outpt p ezra for on and off. He mostly has been doctoring himself and using OTC Aspercreme. He is being managed for the following: PVD Right lower extremity vascular wounds Admitting imagings: X-ray tibia-fibula right: Soft tissue swelling without acute Osseous abnormality. RLE arterial Doppler: No evidence of hemodynamically significant stenosis. Mild atherosclerotic plaques within RLE noted. BLE venous Doppler: No DVT Admitting labs: A1c of 4.9, LDL of 96. Patient was started on empiric antibiotic for concern of infection. Admitting Cx w/ contaminant (d/w ID 04/01). Doubtful it is truly cellulitis, can transition to keflex to complete 7 days course. Dc empiric vanc and rocephin. Monitor. Wound care consult, continue with wound care. Right foot wound as noted in the picture- chronic skin ulceration likely secondary to PVD and venous insufficiency without any evidence of acute infection at this time Complains of pain with activities and movement Will get PT and OT evaluation prior to discharge Will try to limit use of narcotic pain medication R upper Back sebaceous cyst: Not infected, non painful, has been there for years per pt. monitor. HTN: hx of, was prescribed lisinopril 5mg daily , Restarted here. Monitor. Hypertriglyceridemia: previously on statin, but hasn't taken for a long time, Restarted. Monitor. Medication noncompliance: Counseled importance of medication compliance. Hx of vertebral artery dissection: added ASA, Statin back on, pt needs consistent education on being compliant with medications DVT ppx: SQ Lovenox FULL CODE PCP: Chapis De Paz Dispo: admit to medical, wound care. Admission and Anticipated Discharge Date Admission Date: March 30, 2024 Subjective 04/02/2024 The patient was seen and examined in medical floor He has been complaining of pain in the right foot It has been hard for him to move around with the pain Will get a PT and OT evaluation prior to discharge Review of Systems Review of Systems: All systems reviewed and are unremarkable except as noted below Physical Exam Physical Exam: Lying in bed without any acute distress Constitutional: well developed, well nourished and average body habitus; not ill appearing Eyes: PERRL, conjunctivae normal, anicteric sclerae ENMT: external ear and nose normal, oropharynx normal Neck: trachea midline, no thyromegaly Respiratory: no respiratory distress Auscultation: lungs clear to auscultation bilaterally Cardiovascular: Rate/Rhythm: regular rate and regular rhythm; not tachycardic Heart Sounds: normal S1 and normal S2; no murmur Extremities: no edema Gastrointestinal (Abdomen): Inspection/Auscultation: normal bowel sounds; abdomen not distended Percussion/Palpation: abdomen soft; abdomen nontender Musculoskeletal: No acute arthritis involving any of the joint Neurologic: normal touch/pain/proprioception and moves all extremities; no focal motor deficits Psychiatric: A+Ox3, euthymic affect Lymphatic: no cervical or axillary lymphadenopathy Results & Data Results & Data Vital Signs (Past 12 Hours) Vital Signs Temp Pulse Resp BP Pulse Ox O2 Del Method 04/02/24 07:12 36.4 C L 70 16 149/85 H 94 Room Air Laboratory Results Short CBC 04/02/24 Range/Units 06:56 WBC 6.14 (4.8-10.8) K/ul Hgb 13.3 L (14.0-18.0) g/dl Hct 38.1 L (42.0-52.0) % Plt Count 319 (130-400) K/uL [facility] 04/02/24 06:56 Sodium 140 Potassium 4.4 Chloride 107 Carbon Dioxide 27 BUN 11 Creatinine 0.88 Glucose 96 Calcium 9.0 Medications Administered Current Inpatient Medications Acetaminophen (Acetaminophen 325 Mg Tab) 650 mg PO Q4H PRN PRN Reason: pain/fever Stop: 04/29/24 16:36 Last Admin: 03/31/24 20:30 Dose: 650 mg Aspirin (Aspirin 81 Mg Ectab) 81 mg PO DAILY [facility] Stop: 04/30/24 08:59 Last Admin: 04/02/24 08:07 Dose: 81 mg Atorvastatin Calcium (Atorvastatin 40 Mg Tab) 40 mg PO HS ABI Stop: 04/29/24 20:59 Last Admin: 04/01/24 20:25 Dose: 40 mg Cephalexin HCl (Cephalexin 500 Mg Cap) 500 mg PO Q6 [facility]; Protocol Stop: 04/06/24 11:59 Last Admin: 04/02/24 13:06 Dose: 500 mg Diphenhydramine HCl (Diphenhydramine Capsule 25 Mg Cap) 25 mg PO TID PRN PRN Reason: itching, allergic reaction Stop: 04/30/24 11:51 Last Admin: 04/01/24 11:53 Dose: 25 mg Enoxaparin Sodium (Enoxaparin Inj 40 Mg/0.4 Ml Syr) 40 mg SQ HS ABI Stop: 04/29/24 20:59 Last Admin: 04/01/24 20:25 Dose: Not Given Famotidine (Famotidine 20 Mg Tab) 20 mg PO DAILY PRN PRN Reason: Heartburn Stop: 04/29/24 16:36 Lactobacillus Acidophilus (Advanced Probiotic 625 Mg Capsule) 1,250 mg PO DAILY [facility] Stop: 04/30/24 08:59 Last Admin: 04/02/24 08:07 Dose: 1,250 mg Lisinopril (Lisinopril 5 Mg Tab) 5 mg PO QAM [facility] Stop: 04/30/24 08:59 Last Admin: 04/02/24 08:07 Dose: 5 mg Melatonin (Melatonin 3 Mg Tab) 6 mg PO HS PRN PRN Reason: Sleep Stop: 04/29/24 20:59 Morphine Sulfate (Morphine Sulfate 4 Mg/Ml 1 Ml Carp\Vial) 4 mg IV Q4H PRN PRN Reason: Pain Stop: 04/13/24 21:33 Last Admin: 04/02/24 14:36 Dose: 4 mg Ondansetron HCl (Ondansetron Inj 2 Mg/Ml 2 Ml Vial) 4 mg IV Q6H PRN PRN Reason: Nausea Stop: 04/29/24 16:36 Oxycodone HCl (Oxycodone Hcl Ir 5 Mg Tab (Immediate Release)) 5 - 10 mg PO QID PRN PRN Reason: Pain Stop: 04/13/24 21:33 Last Admin: 04/02/24 12:13 Dose: 10 mg Polyethylene Glycol (Polyethylene (Miralax) 17 Gm Pack) 17 gm PO DAILY PRN PRN Reason: Constipation Stop: 04/29/24 16:36
[2024-04-02] MEDS: POLYETHYLENE (MIRALAX) 17 GM PACK PO PRN (23:00)
[2024-04-03 07:17] VITALS: BP 126/71; PULSE 76; TEMP 97.7; O2SAT 96
--- NOTE | 2024-04-03 12:04 | Hospitalist Progress Note ---
Date of Service April 03, 2024 Assessment & Plan (1) PVD (peripheral vascular disease): (2) Wound of right lower extremity: (3) Hypertension: Plan 59-year-old male who has significant past medical history of hypertension, hypertriglyceridemia, history of vertebral artery dissection, left carotid artery plaque who presents to ED at the referral of PCP due to chronic right lower extremity wounds. Pt has had right lower extremity wounds for 5 years that he has seen outpt p ezra for on and off. He mostly has been doctoring himself and using OTC Aspercreme. He is being managed for the following: PVD Right lower extremity vascular wounds Admitting imagings: X-ray tibia-fibula right: Soft tissue swelling without acute Osseous abnormality. RLE arterial Doppler: No evidence of hemodynamically significant stenosis. Mild atherosclerotic plaques within RLE noted. BLE venous Doppler: No DVT Admitting labs: A1c of 4.9, LDL of 96. Patient was started on empiric antibiotic for concern of infection. Admitting Cx w/ contaminant (d/w ID 04/01). Doubtful it is truly cellulitis, can transition to keflex to complete 7 days course. Dc empiric vanc and rocephin. Monitor. Wound care consult, continue with wound care. Right foot wound as noted in the picture- chronic skin ulceration likely secondary to PVD and venous insufficiency without any evidence of acute infection at this time Complains of pain with activities and movement Will get PT and OT evaluation prior to discharge Will try to limit use of narcotic pain medication Right foot pain is reasonably controlled with current pain medications He has had physical therapy and recommendation to go home He has been ambulating in the hallway without much difficulties He wants to go home today and will be sent home this afternoon R upper Back sebaceous cyst: Not infected, non painful, has been there for years per pt. monitor. HTN: hx of, was prescribed lisinopril 5mg daily , Restarted here. Monitor. Hypertriglyceridemia: previously on statin, but hasn't taken for a long time, Restarted. Monitor. Medication noncompliance: Counseled importance of medication compliance. Hx of vertebral artery dissection: added ASA, Statin back on, pt needs consistent education on being compliant with medications DVT ppx: SQ Lovenox FULL CODE PCP: Chapis De Paz Dispo: admit to medical, wound care. Admission and Anticipated Discharge Date Admission Date: March 30, 2024 Subjective 04/02/2024 The patient was seen and examined in medical floor He has been complaining of pain in the right foot It has been hard for him to move around with the pain Will get a PT and OT evaluation prior to discharge 04/03/2024 The patient was seen and examined in medical floor He has been stable and still complains of pain in the right foot at rest and with movement He has had physical therapy and recommended home He will be discharged home this afternoon Review of Systems Review of Systems: All systems reviewed and are unremarkable except as noted below Physical Exam Physical Exam: Lying in bed without any acute distress Constitutional: well developed, well nourished and average body habitus; not ill appearing Eyes: PERRL, conjunctivae normal, anicteric sclerae ENMT: external ear and nose normal, oropharynx normal Neck: trachea midline, no thyromegaly Respiratory: no respiratory distress Auscultation: lungs clear to auscultation bilaterally Cardiovascular: Rate/Rhythm: regular rate and regular rhythm; not tachycardic Heart Sounds: normal S1 and normal S2; no murmur Extremities: no edema Gastrointestinal (Abdomen): Inspection/Auscultation: normal bowel sounds; abdomen not distended Percussion/Palpation: abdomen soft; abdomen nontender Skin: The venous ulcers on the dorsum of right foot anteriorly as in the picture. Inflammation but no infection Neurologic: normal touch/pain/proprioception and moves all extremities; no focal motor deficits Psychiatric: A+Ox3, euthymic affect Lymphatic: no cervical or axillary lymphadenopathy Results & Data Results & Data Vital Signs (Past 12 Hours) Vital Signs Temp Pulse Resp BP Pulse Ox O2 Del Method 04/03/24 07:17 36.5 C 76 16 126/71 96 Room Air Medications Administered Current Inpatient Medications Acetaminophen (Acetaminophen 325 Mg Tab) 650 mg PO Q4H PRN PRN Reason: pain/fever Stop: 04/29/24 16:36 Last Admin: 03/31/24 20:30 Dose: 650 mg Aspirin (Aspirin 81 Mg Ectab) 81 mg PO DAILY [facility] Stop: 04/30/24 08:59 Last Admin: 04/03/24 09:56 Dose: 81 mg Atorvastatin Calcium (Atorvastatin 40 Mg Tab) 40 mg PO HS [facility] Stop: 04/29/24 20:59 Last Admin: 04/02/24 20:10 Dose: 40 mg Cephalexin HCl (Cephalexin 500 Mg Cap) 500 mg PO Q6 [facility]; Protocol Stop: 04/06/24 11:59 Last Admin: 04/03/24 05:56 Dose: 500 mg Diphenhydramine HCl (Diphenhydramine Capsule 25 Mg Cap) 25 mg PO TID PRN PRN Reason: itching, allergic reaction Stop: 04/30/24 11:51 Last Admin: 04/01/24 11:53 Dose: 25 mg Enoxaparin Sodium (Enoxaparin Inj 40 Mg/0.4 Ml Syr) 40 mg SQ HS [facility] Stop: 04/29/24 20:59 Last Admin: 04/02/24 20:10 Dose: Not Given Famotidine (Famotidine 20 Mg Tab) 20 mg PO DAILY PRN PRN Reason: Heartburn Stop: 04/29/24 16:36 Lactobacillus Acidophilus (Advanced Probiotic 625 Mg Capsule) 1,250 mg PO DAILY [facility] Stop: 04/30/24 08:59 Last Admin: 04/03/24 09:56 Dose: 1,250 mg Lisinopril (Lisinopril 5 Mg Tab) 5 mg PO QAM [facility] Stop: 04/30/24 08:59 Last Admin: 04/03/24 09:56 Dose: 5 mg Melatonin (Melatonin 3 Mg Tab) 6 mg PO HS PRN PRN Reason: Sleep Stop: 04/29/24 20:59 Morphine Sulfate (Morphine Sulfate 4 Mg/Ml 1 Ml Carp\Vial) 4 mg IV Q4H PRN PRN Reason: Pain Stop: 04/13/24 21:33 Last Admin: 04/03/24 10:00 Dose: 4 mg Ondansetron HCl (Ondansetron Inj 2 Mg/Ml 2 Ml Vial) 4 mg IV Q6H PRN PRN Reason: Nausea Stop: 04/29/24 16:36 Oxycodone HCl (Oxycodone Hcl Ir 5 Mg Tab (Immediate Release)) 5 - 10 mg PO QID PRN PRN Reason: Pain Stop: 04/13/24 21:33 Last Admin: 04/03/24 05:59 Dose: 10 mg Polyethylene Glycol (Polyethylene (Miralax) 17 Gm Pack) 17 gm PO DAILY PRN PRN Reason: Constipation Stop: 01/02/25 16:36 Last Admin: 04/02/24 23:00 Dose: 17 gm
--- NOTE | 2024-04-03 19:02 | Discharge Summary ---
Date of Service April 03, 2024 Admission HPI Per Admitting Provider This is a 59-year-old male who has significant past medical history of hypertension, hypertriglyceridemia, history of vertebral artery dissection, left carotid artery plaque who presents to ED at the referral of PCP due to chronic right lower extremity wounds. He was seen in clinic yesterday by outpatient provider due to worsening lower extremity, right, wounds. He has been dressing them himself with a topical Aspercreme, lidocaine and using gauze/toilet paper to cover it. He previously was seen in wound clinic but has been dealing with these wounds for 5 years now. He does not routinely follow with primary care provider. He previously was prescribed medications including lisinopril and atorvastatin, but admittedly has not been taking these for quite some time. He states he works approximately 15 hours a day on his feet and does not have time to take his medications. He denies any tobacco use. He does occasionally drink alcohol. He denies any illicit drug use. His appetite has otherwise been stable. He denies any fever, chills, sweats, lightheadedness, dizziness, chest pain, shortness of breath, nausea, vomiting or abdominal pain. 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 He does complain of pain to the RLE. Dx with Vertebral artery dissection along with less than 50% narrowing L ICA carotid plaque noted on imaging. Patient discharged on aspirin and statin Rx. This was in 2019. He is supposed lipid affluent flex lifestyle to be on asa and statin. Admission Exam Per Admitting Provider Constitutional: WD/WN, vitals as above, NAD, sitting up in bed, pleasant, conversing easily Head: Normocephalic, Atraumatic Eyes: PERRL, conjunctivae normal, anicteric sclerae ENMT: external ear and nose normal, oropharynx normal Neck: trachea midline, no thyromegaly normal visual inspection Respiratory: normal respiratory effort, lungs clear to auscultation, no wheeze, rales, rhonchi. Normal insp/exp effort, no accessory muscle use Cardiovascular: RRR, no murmur, Vessels: no JVD or carotid bruit Chest: normal inspection of chest Abdomen: normal bowel sounds, soft, nontender, no hepatosplenomegaly Musculoskeletal: no cyanosis or clubbing, extremities motor strength 5/5 Skin: no rashes, warm and dry normal turgor Neurologic: no face palsy, no dysarthria CN's II-XI intact bilaterally and moves all extremities Psychiatric: A+Ox3, euthymic affect : deferred Ext: B/l lower ext venous stasis with RLE venous stasis ulcerations, +2 DP pulse Principal Diagnosis Right lower extremity venous ulceration, peripheral vascular disease, hypertension Discharge Exam Lying in bed without any acute distress Constitutional well developed, well nourished and average body habitus; not ill appearing Eyes PERRL, conjunctivae normal, anicteric sclerae ENMT external ear and nose normal, oropharynx normal Neck trachea midline, no thyromegaly Respiratory no respiratory distress Auscultation: lungs clear to auscultation bilaterally Cardiovascular Rate/Rhythm: regular rate and regular rhythm; not tachycardic Heart Sounds: normal S1 and normal S2; no murmur Extremities: no edema Gastrointestinal (Abdomen) Inspection/Auscultation: normal bowel sounds; abdomen not distended Percussion/Palpation: abdomen soft; abdomen nontender Neurologic normal touch/pain/proprioception and moves all extremities; no focal motor deficits Psychiatric A+Ox3, euthymic affect Lymphatic no cervical or axillary lymphadenopathy Discharge Data Allergies Allergy/AdvReac Type Severity Reaction Status Date / Time No Known Allergies Allergy Verified 03/30/24 15:25 Consultations 03/30/24 12:47 ED Decision to Admit Stat Ordered Studies 03/30/24 13:41 US arterial duplex LE RT Stat US venous doppler LE BI Stat Hospital Course (1) PVD (peripheral vascular disease): (2) Wound of right lower extremity: (3) Hypertension: Plan 59-year-old male who has significant past medical history of hypertension, hypertriglyceridemia, history of vertebral artery dissection, left carotid artery plaque who presents to ED at the referral of PCP due to chronic right lower extremity wounds. Pt has had right lower extremity wounds for 5 years that he has seen outpt providers for on and off. He mostly has been doctoring himself and using OTC Aspercreme. He is being managed for the following: PVD Right lower extremity vascular wounds Admitting imagings: X-ray tibia-fibula right: Soft tissue swelling without acute Osseous abnormality. RLE arterial Doppler: No evidence of hemodynamically significant stenosis. Mild atherosclerotic plaques within RLE noted. BLE venous Doppler: No DVT Admitting labs: A1c of 4.9, LDL of 96. Patient was started on empiric antibiotic for concern of infection. Admitting Cx w/ contaminant (d/w ID 04/01). Doubtful it is truly cellulitis, can transition to keflex to complete 7 days course. Dc empiric vanc and rocephin. Monitor. Wound care consult, continue with wound care. Right foot wound as noted in the picture- chronic skin ulceration likely secondary to PVD and venous insufficiency without any evidence of acute infection at this time Complains of pain with activities and movement Will get PT and OT evaluation prior to discharge Will try to limit use of narcotic pain medication Right foot pain is reasonably controlled with current pain medications He has had physical therapy and recommendation to go home He has been ambulating in the hallway without much difficulties He wants to go home today and will be sent home this afternoon R upper Back sebaceous cyst: Not infected, non painful, has been there for years per pt. monitor. HTN: hx of, was prescribed lisinopril 5mg daily , Restarted here. Monitor. Hypertriglyceridemia: previously on statin, but hasn't taken for a long time, Restarted. Monitor. Medication noncompliance: Counseled importance of medication compliance. Hx of vertebral artery dissection: added ASA, Statin back on, pt needs consistent education on being compliant with medications DVT ppx: SQ Lovenox FULL CODE PCP: Chapis De Paz Dispo: admit to medical, wound care. Total Time Total Time Spent Total Time Spent (In Minutes): 35 minutes Discharge Plan Discharge Items Patient Disposition: Home - Self-Care Reason For Visit: CHRONIC VENOUS STASIS WOUNDS Discharge Diagnosis: right lower extremity venous ulceration, peripheral vascular disease, hypertension Condition on Discharge: Good Activity: Resume your previous activity Non-emergency contact: Primary Care Provider Call non-emergency contact if: you have any medication questions and your symptoms worsen Follow-up/Referrals: PCP,NO [Primary Care Provider] - ( Will make an appointment with your PCP within 7 days and let you know) Diet: Regular Addtl Attending Provider Instructions: Please take precaution to avoid falls Try to keep your foot wound clean and dry Try to use less of narcotic pain medications to avoid constipation, confusion, addiction Please keep appointments with the healthcare provider Pending Studies at Discharge: No Stand-Alone Forms: [facility], Pain - Opioid Pain Management, Smoking Cessation Medications and DC Order Prescriptions: New atorvastatin 40 mg Tablet 40 mg PO HS Qty: 30 0RF aspirin 81 mg Tablet,Delayed Release (Dr/Ec) 81 mg PO DAILY Qty: 30 0RF cephalexin 500 mg Capsule 500 mg PO Q6 Qty: 12 0RF lisinopril [Zestril] 5 mg Tablet 5 mg PO QAM Qty: 30 0RF oxycodone 5 mg Tablet 5 mg PO QID PRN (Reason: pain) Qty: 20 0RF Continued gabapentin 300 mg capsule 300 mg PO HS duloxetine 30 mg capsule,delayed release(DR/EC) 30 mg PO QAM Discharge Orders: Discharge Order (Routine); Ordered 04/03/24 Ordered By: Sahra Garduno Admission Data Admit Date/Time: 03/30/24 13:35 Attending Provider: Sahra Garduno Admit Provider: Kelechi Williamson Primary Care Provider: PCP,NO Other Providers: Lai Ramey; Carrillo Mahmood Other Interventions: Discharge Summary Assessment (RN) Last Done: 04/03/24 12:19
== END 2024-04-03 13:29 | disposition home or self-care (01) | DRG 300 ==
LOC: ED 10:16 → SUATTDRO 13:35 → INTOOBSV 13:35 → EDINP 13:35 → 3N 18:40
DX: I25.10 Atherosclerotic heart disease of native coronary artery without angina pectoris; Z87.891 Personal history of nicotine dependence; L97.519 Non-pressure chronic ulcer of other part of right foot with unspecified severity; I83.015 Varicose veins of right lower extremity with ulcer other part of foot; I10 Essential (primary) hypertension; I73.9 Peripheral vascular disease, unspecified; Z91.148 Patient's other noncompliance with medication regimen for other reason; L03.115 Cellulitis of right lower limb; Z79.899 Other long term (current) drug therapy; E78.1 Pure hyperglyceridemia; I87.2 Venous insufficiency (chronic) (peripheral); Z86.73 Personal history of transient ischemic attack (TIA), and cerebral infarction without residual deficits; D72.819 Decreased white blood cell count, unspecified